=== PATIENT | male | born 1940 | race Caucasian/White ===

== ENCOUNTER 2018-12-10 12:05 | Inpatient (IN) | payer OTHER ==
[~2018-12-10] VITALS: Ht 188 cm; Wt 137.6 kg
[~2018-12-10 12:05] MED LIST: ACET500 PO; ALBU90OI61 INH; AMLO10 PO; Aspir 8181 MG PO; CHLO25B PO; DIGO.25 PO; DIPH50 PO; Daily Multiple1 EACH PO; Glucophage1000 MG PO; LOSA50 PO; MELA3 PO; METF500C PO; METO50 PO; METO50ER PO; NIAC500 PO; OXYACE5T PO; POTA10T PO; POTCHL20ER PO; SERT50 PO; SIMV40 PO; SPIR25 PO; STIOLTO RESPIMAT4 GM INH; Simvastatin20 MG PO; TURMERIC500 MG PO; UBID10 PO; WARF1 PO
[2018-12-10] MEDS ORDERED: ALBU2.5V5 NEB (13:00)
[2018-12-10] MEDS ORDERED: CHLO25B PO (13:01)
[2018-12-10] MEDS ORDERED: COLCHICINE0.6 MG PO (13:02)
[2018-12-10] MEDS ORDERED: DOXY100 PO (13:03)
[2018-12-10] MEDS ORDERED: DOCU100 PO (13:03)
[2018-12-10] MEDS ORDERED: KETOROLAC TROMET5 ML (13:04)
[2018-12-10] MEDS ORDERED: MONT10T PO (13:05)
[2018-12-10] MEDS ORDERED: Percocet 5-3251 EACH PO (13:09)
[2018-12-10] MEDS ORDERED: VITAMIN C500 MG PO (14:07)
[2018-12-10] MEDS ORDERED: BENADRYL25 MG PO (15:44)
[2018-12-10] MEDS ORDERED: MELATONIN5 M1 PO (15:47)
[2018-12-11 04:55] LABS: BASOPHILS ABSOLUTE AUTO 0.06 K/mm3 (0.00-0.23); BASOPHILS PERCENT AUTO 0 % (0-2); EOSINOPHILS ABSOLUTE AUTO 0.39 K/mm3 (0.00-0.68); EOSINOPHILS PERCENT AUTO 2 % (0-6); Hematocrit 43.9 % (37.0-53.0); Hemoglobin 14.6 g/dL (13.5-17.5); IMMATURE GRAN ABSOLUTE AUTO 0.14 K/mm3 (0.00-0.10); IMMATURE GRAN PERCENT AUTO 1 % (0-1); LYMPHOCYTES ABSOLUTE AUTO 1.54 K/mm3 (0.84-5.20); LYMPHOCYTES PERCENT AUTO 9 % (21-46); MONOCYTES ABSOLUTE AUTO 1.74 K/mm3 (0.16-1.47); MONOCYTES PERCENT AUTO 10 % (4-13); Mean Corpuscular HGB 33.9 pg (26.0-34.0); Mean Corpuscular HGB Conc 33.3 g/dL (31.5-36.5); Mean Platelet Volume 12.4 fL (9.1-12.4); NEUTROPHILS ABSOLUTE AUTO 14.16 K/mm3 (1.96-9.15); NEUTROPHILS PERCENT AUTO 79 % (41-73); Platelet Count 100 K/mm3 (150-400); RDW Coefficient Variation 12.3 % (11.7-14.2); RDW Standard Deviation 46.6 fL (35.1-46.3); Red Blood Cell Count 4.31 M/mm3 (4.30-5.90); White Blood Cell Count 18.03 K/mm3 (4.00-11.30)
[2018-12-11 04:56] LABS: Mean Corpuscular Volume 102 fL (80-100)
[2018-12-11 05:11] LABS: International Normalized Ratio 2.47; Prothrombin Time Results 24.1 Sec (9.7-11.5)
[2018-12-11 05:21] LABS: Alanine Aminotransfer (ALT/SGP 19 U/L (12-78); Albumin, Blood 2.9 g/dL (3.4-5.0); Albumin/Globulin Ratio 0.9 (0.8-1.8); Alk Phos 64 U/L (50-136); Anion Gap 6 mmol/L (6-16); Aspartate Aminotrans (AST/SGOT 25 U/L (12-37); Bilirubin, Total 1.1 mg/dL (0.1-1.0); Blood Urea Nitrogen 35 mg/dL (8-24); Bun/Creatinine Ratio 29.9 (12.0-20.0); CO2, Blood 27 mmol/L (21-32); Calcium, Blood 8.1 mg/dL (8.5-10.1); Chloride, Blood 106 mmol/L (98-108); Creatinine, Blood 1.17 mg/dL (0.60-1.20); Globulin, Blood 3.3 g/dL (2.2-4.0); Glomerular Filtration Rate >60 (60-); Glucose, Blood 106 mg/dL (70-99); Potassium, Blood 4.2 mmol/L (3.5-5.5); Sodium, Blood 139 mmol/L (136-145); Total Protein, Blood 6.2 g/dL (6.4-8.2)
[2018-12-12 04:30] LABS: BASOPHILS ABSOLUTE AUTO 0.05 K/mm3 (0.00-0.23); BASOPHILS PERCENT AUTO 0 % (0-2); EOSINOPHILS ABSOLUTE AUTO 0.35 K/mm3 (0.00-0.68); EOSINOPHILS PERCENT AUTO 2 % (0-6); Hematocrit 46.6 % (37.0-53.0); Hemoglobin 15.6 g/dL (13.5-17.5); IMMATURE GRAN ABSOLUTE AUTO 0.12 K/mm3 (0.00-0.10); IMMATURE GRAN PERCENT AUTO 1 % (0-1); LYMPHOCYTES ABSOLUTE AUTO 1.35 K/mm3 (0.84-5.20); LYMPHOCYTES PERCENT AUTO 8 % (21-46); MONOCYTES ABSOLUTE AUTO 2.05 K/mm3 (0.16-1.47); MONOCYTES PERCENT AUTO 12 % (4-13); Mean Corpuscular HGB 33.8 pg (26.0-34.0); Mean Corpuscular HGB Conc 33.5 g/dL (31.5-36.5); Mean Corpuscular Volume 101 fL (80-100); Mean Platelet Volume 11.5 fL (9.1-12.4); NEUTROPHILS ABSOLUTE AUTO 13.13 K/mm3 (1.96-9.15); NEUTROPHILS PERCENT AUTO 77 % (41-73); Platelet Count 106 K/mm3 (150-400); RDW Coefficient Variation 12.4 % (11.7-14.2); RDW Standard Deviation 46.7 fL (35.1-46.3); Red Blood Cell Count 4.62 M/mm3 (4.30-5.90); White Blood Cell Count 17.05 K/mm3 (4.00-11.30)
[2018-12-12 04:44] LABS: International Normalized Ratio 1.67; Prothrombin Time Results 16.9 Sec (9.7-11.5)
[2018-12-12 04:47] LABS: Alanine Aminotransfer (ALT/SGP 24 U/L (12-78); Albumin, Blood 3.1 g/dL (3.4-5.0); Albumin/Globulin Ratio 0.9 (0.8-1.8); Alk Phos 67 U/L (50-136); Anion Gap 4 mmol/L (6-16); Aspartate Aminotrans (AST/SGOT 26 U/L (12-37); Bilirubin, Total 1.5 mg/dL (0.1-1.0); Blood Urea Nitrogen 26 mg/dL (8-24); Bun/Creatinine Ratio 24.8 (12.0-20.0); CO2, Blood 29 mmol/L (21-32); Calcium, Blood 8.6 mg/dL (8.5-10.1); Chloride, Blood 109 mmol/L (98-108); Creatinine, Blood 1.05 mg/dL (0.60-1.20); Globulin, Blood 3.5 g/dL (2.2-4.0); Glomerular Filtration Rate >60 (60-); Glucose, Blood 125 mg/dL (70-99); Potassium, Blood 4.1 mmol/L (3.5-5.5); Sodium, Blood 142 mmol/L (136-145); Total Protein, Blood 6.6 g/dL (6.4-8.2)
[2018-12-12 13:37] LABS: Vancomycin, Trough 10.2 ug/mL (5.0-10.0)
[2018-12-13 04:42] LABS: International Normalized Ratio 1.89; Prothrombin Time Results 18.9 Sec (9.7-11.5)
[2018-12-14 04:51] LABS: BASOPHILS ABSOLUTE AUTO 0.06 K/mm3 (0.00-0.23); BASOPHILS PERCENT AUTO 0 % (0-2); EOSINOPHILS ABSOLUTE AUTO 0.54 K/mm3 (0.00-0.68); EOSINOPHILS PERCENT AUTO 3 % (0-6); Hematocrit 45.6 % (37.0-53.0); Hemoglobin 15.4 g/dL (13.5-17.5); IMMATURE GRAN ABSOLUTE AUTO 0.12 K/mm3 (0.00-0.10); IMMATURE GRAN PERCENT AUTO 1 % (0-1); LYMPHOCYTES ABSOLUTE AUTO 1.77 K/mm3 (0.84-5.20); LYMPHOCYTES PERCENT AUTO 11 % (21-46); MONOCYTES ABSOLUTE AUTO 2.18 K/mm3 (0.16-1.47); MONOCYTES PERCENT AUTO 13 % (4-13); Mean Corpuscular HGB Conc 33.8 g/dL (31.5-36.5); NEUTROPHILS ABSOLUTE AUTO 11.89 K/mm3 (1.96-9.15); NEUTROPHILS PERCENT AUTO 72 % (41-73); Platelet Count 145 K/mm3 (150-400); RDW Coefficient Variation 12.3 % (11.7-14.2); RDW Standard Deviation 44.3 fL (35.1-46.3); Red Blood Cell Count 4.67 M/mm3 (4.30-5.90); White Blood Cell Count 16.56 K/mm3 (4.00-11.30)
[2018-12-14 04:53] LABS: Mean Corpuscular Volume 98 fL (80-100)
[2018-12-14 05:07] LABS: International Normalized Ratio 2.08; Prothrombin Time Results 20.6 Sec (9.7-11.5)
[2018-12-14 05:11] LABS: Alanine Aminotransfer (ALT/SGP 27 U/L (12-78); Albumin, Blood 2.9 g/dL (3.4-5.0); Albumin/Globulin Ratio 0.8 (0.8-1.8); Alk Phos 72 U/L (50-136); Anion Gap 6 mmol/L (6-16); Aspartate Aminotrans (AST/SGOT 18 U/L (12-37); Bilirubin, Total 1.5 mg/dL (0.1-1.0); Blood Urea Nitrogen 22 mg/dL (8-24); Bun/Creatinine Ratio 24.1 (12.0-20.0); CO2, Blood 28 mmol/L (21-32); Calcium, Blood 8.9 mg/dL (8.5-10.1); Chloride, Blood 106 mmol/L (98-108); Creatinine, Blood 0.91 mg/dL (0.60-1.20); Globulin, Blood 3.5 g/dL (2.2-4.0); Glomerular Filtration Rate >60 (60-); Glucose, Blood 128 mg/dL (70-99); Potassium, Blood 4.2 mmol/L (3.5-5.5); Sodium, Blood 140 mmol/L (136-145); Total Protein, Blood 6.4 g/dL (6.4-8.2)
[2018-12-15 05:31] LABS: International Normalized Ratio 2.3; Prothrombin Time Results 22.6 Sec (9.7-11.5)
[2018-12-16 04:57] LABS: BASOPHILS ABSOLUTE AUTO 0.06 K/mm3 (0.00-0.23); BASOPHILS PERCENT AUTO 0 % (0-2); EOSINOPHILS ABSOLUTE AUTO 0.78 K/mm3 (0.00-0.68); EOSINOPHILS PERCENT AUTO 5 % (0-6); Hematocrit 44.8 % (37.0-53.0); Hemoglobin 15.2 g/dL (13.5-17.5); IMMATURE GRAN ABSOLUTE AUTO 0.15 K/mm3 (0.00-0.10); IMMATURE GRAN PERCENT AUTO 1 % (0-1); LYMPHOCYTES ABSOLUTE AUTO 1.89 K/mm3 (0.84-5.20); LYMPHOCYTES PERCENT AUTO 12 % (21-46); MONOCYTES ABSOLUTE AUTO 1.67 K/mm3 (0.16-1.47); MONOCYTES PERCENT AUTO 10 % (4-13); Mean Corpuscular HGB 33.5 pg (26.0-34.0); Mean Corpuscular HGB Conc 33.9 g/dL (31.5-36.5); Mean Corpuscular Volume 99 fL (80-100); Mean Platelet Volume 10.7 fL (9.1-12.4); NEUTROPHILS ABSOLUTE AUTO 11.49 K/mm3 (1.96-9.15); NEUTROPHILS PERCENT AUTO 72 % (41-73); Platelet Count 159 K/mm3 (150-400); RDW Coefficient Variation 12.2 % (11.7-14.2); RDW Standard Deviation 44.6 fL (35.1-46.3); Red Blood Cell Count 4.54 M/mm3 (4.30-5.90); White Blood Cell Count 16.04 K/mm3 (4.00-11.30)
[2018-12-16 05:11] LABS: International Normalized Ratio 2.28; Prothrombin Time Results 22.4 Sec (9.7-11.5)
[2018-12-16 05:21] LABS: Anion Gap 4 mmol/L (6-16); Blood Urea Nitrogen 27 mg/dL (8-24); Bun/Creatinine Ratio 26.7 (12.0-20.0); CO2, Blood 31 mmol/L (21-32); Chloride, Blood 106 mmol/L (98-108); Creatinine, Blood 1.01 mg/dL (0.60-1.20); Glomerular Filtration Rate >60 (60-); Glucose, Blood 123 mg/dL (70-99); Potassium, Blood 4.3 mmol/L (3.5-5.5); Sodium, Blood 141 mmol/L (136-145)
[2018-12-16] MEDS ORDERED: FURO40 PO (16:57)
[2018-12-16] MEDS ORDERED: Norco 5-325 Ta1 EACH PO (16:57)
[2018-12-16] MEDS ORDERED: Florastor250 MG PO (16:58)
[2018-12-16] MEDS ORDERED: MERREM1 GM IV (16:59)
== END 2018-12-16 15:07 | DRG 872 ==
LOC: ER 12:05 → MEDS 13:40 → ER 14:45 → MEDS 15:39 → ENPENDDIS 12-16 11:41 → MEDS 12-16 15:07
PROVIDERS: Internal Medicine; ADMIT Internal Medicine
DX: A41.9 Sepsis, unspecified organism (principal); L03.116 Cellulitis of left lower limb; J96.11 Chronic respiratory failure with hypoxia; E87.2 Acidosis; D89.9 Disorder involving the immune mechanism, unspecified; M06.9 Rheumatoid arthritis, unspecified; M1A.9XX0 Chronic gout, unspecified, without tophus (tophi); I48.2 Chronic atrial fibrillation; Z79.01 Long term (current) use of anticoagulants; J44.9 Chronic obstructive pulmonary disease, unspecified; D69.6 Thrombocytopenia, unspecified; G47.33 Obstructive sleep apnea (adult) (pediatric); Z88.0 Allergy status to penicillin; I12.9 Hypertensive chronic kidney disease with stage 1 through stage 4 chronic kidney disease, or unspecified chronic kidney disease; E11.22 Type 2 diabetes mellitus with diabetic chronic kidney disease; N18.3 Chronic kidney disease, stage 3 (moderate); Z95.0 Presence of cardiac pacemaker; E78.5 Hyperlipidemia, unspecified; Z99.81 Dependence on supplemental oxygen
CPT/HCPCS: 36415; 71045; 73590; 73701; 80048; 80053; 80061; 80202; 82565; 82947; 83036; 83605; 84550; 85025; 85610; 85651; 86140; 87040; 87081; 93971; 94640; 94760; 94762; 96365; 97110; 97116; 97162; 97166; 97530; 97535; 99284-25; A9270; J2185; J3370; J7030; J7050; Q0163; Q9967

== ENCOUNTER 2019-06-11 08:37 | Inpatient (IN) | payer OTHER ==
[~2019-06-11] VITALS: Ht 188 cm; Wt 139.7 kg
[~2019-06-11 08:37] MED LIST changes: +ALBU2.5V5 NEB; +BENADRYL25 MG PO; +COLCHICINE0.6 MG PO; +DOCU100 PO; +DOXY100 PO; +FURO40 PO; +Florastor250 MG PO; +KETOROLAC TROMET5 ML; +MERREM1 GM IV; +MONT10T PO; +Norco 5-325 Ta1 EACH PO; +Percocet 5-3251 EACH PO; +VITAMIN C500 MG PO
[2019-06-11 09:25] LABS: BASOPHILS ABSOLUTE AUTO 0.07 K/mm3 (0.00-0.23); BASOPHILS PERCENT AUTO 0 % (0-2); EOSINOPHILS ABSOLUTE AUTO 0.31 K/mm3 (0.00-0.68); EOSINOPHILS PERCENT AUTO 1 % (0-6); Hematocrit 52.5 % (37.0-53.0); Hemoglobin 17.6 g/dL (13.5-17.5); IMMATURE GRAN ABSOLUTE AUTO 0.14 K/mm3 (0.00-0.10); IMMATURE GRAN PERCENT AUTO 1 % (0-1); LYMPHOCYTES ABSOLUTE AUTO 1.51 K/mm3 (0.84-5.20); LYMPHOCYTES PERCENT AUTO 6 % (21-46); MONOCYTES ABSOLUTE AUTO 2.27 K/mm3 (0.16-1.47); MONOCYTES PERCENT AUTO 10 % (4-13); Mean Corpuscular HGB 33.3 pg (26.0-34.0); Mean Corpuscular HGB Conc 33.5 g/dL (31.5-36.5); Mean Corpuscular Volume 99 fL (80-100); Mean Platelet Volume 11.6 fL (9.1-12.4); NEUTROPHILS ABSOLUTE AUTO 19.35 K/mm3 (1.96-9.15); NEUTROPHILS PERCENT AUTO 82 % (41-73); Platelet Count 114 K/mm3 (150-400); RDW Coefficient Variation 12.6 % (11.7-14.2); RDW Standard Deviation 46.7 fL (35.1-46.3); Red Blood Cell Count 5.28 M/mm3 (4.30-5.90); White Blood Cell Count 23.65 K/mm3 (4.00-11.30)
[2019-06-11 09:27] LABS: Source, Urine Clean Catch
[2019-06-11 09:30] LABS: Appearance, Urine Clear (Clear); Bilirubin, Urine Neg (Neg); Blood, Urine 5+ (Neg); Color, Urine Yellow (P-Yellow); Glucose Qualitative, Urine Neg (Neg); Ketones, Urine Neg (Neg); Leukocyte Esterase, Urine 1+ (Neg); Nitrite, Urine Pos (Neg); Protein, Urine 1+ (Neg); Urobilinogen, Urine 1+ (Normal)
[2019-06-11 09:36] LABS: Alanine Aminotransfer (ALT/SGP 30 U/L (12-78); Albumin, Blood 3.6 g/dL (3.4-5.0); Alk Phos 54 U/L (50-136); Anion Gap 6 mmol/L (6-16); Aspartate Aminotrans (AST/SGOT 24 U/L (12-37); Bilirubin, Total 1.9 mg/dL (0.1-1.0); Blood Urea Nitrogen 27 mg/dL (8-24); CO2, Blood 26 mmol/L (21-32); Calcium, Blood 8.8 mg/dL (8.5-10.1); Chloride, Blood 108 mmol/L (98-108); Creatinine, Blood 1.23 mg/dL (0.60-1.20); Globulin, Blood 3.7 g/dL (2.2-4.0); Glomerular Filtration Rate >60 (60-); Glucose, Blood 147 mg/dL (70-99); Potassium, Blood 4.2 mmol/L (3.5-5.5); Sodium, Blood 140 mmol/L (136-145); Total Protein, Blood 7.3 g/dL (6.4-8.2)
[2019-06-11 09:46] LABS: Bacteria Rare /hpf; Red Blood Cells, Urine 50-100 /hpf (0-2); Squamous Epithelial Cells Not Seen /hpf (Few)
[2019-06-11] MEDS ORDERED: CHLO25B PO (11:43)
[2019-06-11 12:39] LABS: International Normalized Ratio 2.1; Prothrombin Time Results 20.8 Sec (9.7-11.5)
--- NOTE | 2019-06-11 18:50 | NUR ---
SHIFT SUMMARY PT IS A&O X4. 1 ASSIST WITH TRANSFERS. PT IS ON 3L O2 VIA NC WHICH IS PT'S BASELINE PER PT DUE TO HX COPD. PT HAS STATED HIS PAIN HAS BEEN TOLERABLE AT 2-3 OUT OF 10. IV FLUIDS & ABX INFUSED PER EMAR. PT HAS BEEN SEEN BY DR. MURRELL AND STARTED ON A CLEAR LIQUID DIET OF NOW. NO OTHER CHANGES. CALL LIGHT IN REACH
[2019-06-12 04:34] LABS: BASOPHILS ABSOLUTE AUTO 0.05 K/mm3 (0.00-0.23); BASOPHILS PERCENT AUTO 0 % (0-2); EOSINOPHILS ABSOLUTE AUTO 0.29 K/mm3 (0.00-0.68); EOSINOPHILS PERCENT AUTO 2 % (0-6); Hematocrit 47.6 % (37.0-53.0); Hemoglobin 15.9 g/dL (13.5-17.5); IMMATURE GRAN ABSOLUTE AUTO 0.09 K/mm3 (0.00-0.10); IMMATURE GRAN PERCENT AUTO 1 % (0-1); LYMPHOCYTES ABSOLUTE AUTO 1.54 K/mm3 (0.84-5.20); LYMPHOCYTES PERCENT AUTO 8 % (21-46); MONOCYTES ABSOLUTE AUTO 1.09 K/mm3 (0.16-1.47); MONOCYTES PERCENT AUTO 6 % (4-13); Mean Corpuscular HGB 33.3 pg (26.0-34.0); Mean Corpuscular HGB Conc 33.4 g/dL (31.5-36.5); Mean Corpuscular Volume 100 fL (80-100); Mean Platelet Volume 11.9 fL (9.1-12.4); NEUTROPHILS ABSOLUTE AUTO 16.49 K/mm3 (1.96-9.15); NEUTROPHILS PERCENT AUTO 84 % (41-73); Platelet Count 98 K/mm3 (150-400); RDW Coefficient Variation 12.9 % (11.7-14.2); Red Blood Cell Count 4.78 M/mm3 (4.30-5.90); White Blood Cell Count 19.55 K/mm3 (4.00-11.30)
[2019-06-12 04:45] LABS: International Normalized Ratio 1.99; Prothrombin Time Results 19.8 Sec (9.7-11.5)
[2019-06-12 04:52] LABS: Alanine Aminotransfer (ALT/SGP 21 U/L (12-78); Albumin, Blood 3.2 g/dL (3.4-5.0); Alk Phos 47 U/L (50-136); Anion Gap 6 mmol/L (6-16); Aspartate Aminotrans (AST/SGOT 19 U/L (12-37); Bilirubin, Total 2.4 mg/dL (0.1-1.0); Blood Urea Nitrogen 20 mg/dL (8-24); Bun/Creatinine Ratio 19.2 (12.0-20.0); CO2, Blood 29 mmol/L (21-32); Chloride, Blood 109 mmol/L (98-108); Creatinine, Blood 1.04 mg/dL (0.60-1.20); Globulin, Blood 3.2 g/dL (2.2-4.0); Glomerular Filtration Rate >60 (60-); Glucose, Blood 118 mg/dL (70-99); Potassium, Blood 4.2 mmol/L (3.5-5.5); Sodium, Blood 144 mmol/L (136-145); Total Protein, Blood 6.4 g/dL (6.4-8.2)
--- NOTE | 2019-06-12 05:04 | NUR ---
SHIFT SUMMARY: PT APPEARS COMFORTABLE THROUGHOUT NIGHT. A7O X4. VS WNL. DENIES PAIN AND NAUSEA. FLUIDS AND ABX INFUSING PER EMAR. WBC'S REMAIN ELEVATED THIS MORNING AT 19.5. PT KATTY CLR LIQ DIET. CBG'S STABLE WITHOUT NEED FOR COVERAGE. PT WITH SMALL AMT OF URINE OUTPUT. URINE DARK/REYES COLORED. USING HOME CPAP T/O NIGHT WITH 6-7L O2. O2 SATS SITTING AT 92%. PT DENIES SOB.
--- NOTE | 2019-06-12 16:34 | NUR ---
SUMMARY: PT ADMITTED FOR DIVERTICULITIS. NO ACUTE CHANGE TODAY. PT HAD LIQUID BM THIS AM. DENIES PAIN/NAUSEA. TOLERATING FULL LIQUID DIET. PT DENIES SOB, ON 4L O2 WHICH IS PT BASELINE, VSS. NO SAFETY CONCERNS. PLAN IS FOR REPEAT LABS IN AM. WILL CTM AND REPORT TO LIVIER MARINELLI.
[2019-06-13 04:47] LABS: BASOPHILS ABSOLUTE AUTO 0.04 K/mm3 (0.00-0.23); BASOPHILS PERCENT AUTO 0 % (0-2); EOSINOPHILS ABSOLUTE AUTO 0.59 K/mm3 (0.00-0.68); EOSINOPHILS PERCENT AUTO 5 % (0-6); Hematocrit 47.4 % (37.0-53.0); Hemoglobin 15.5 g/dL (13.5-17.5); IMMATURE GRAN ABSOLUTE AUTO 0.04 K/mm3 (0.00-0.10); IMMATURE GRAN PERCENT AUTO 0 % (0-1); LYMPHOCYTES PERCENT AUTO 13 % (21-46); MONOCYTES ABSOLUTE AUTO 1.13 K/mm3 (0.16-1.47); MONOCYTES PERCENT AUTO 10 % (4-13); Mean Corpuscular HGB 33.3 pg (26.0-34.0); Mean Corpuscular HGB Conc 32.7 g/dL (31.5-36.5); Mean Corpuscular Volume 102 fL (80-100); NEUTROPHILS ABSOLUTE AUTO 7.88 K/mm3 (1.96-9.15); NEUTROPHILS PERCENT AUTO 71 % (41-73); Platelet Count 101 K/mm3 (150-400); RDW Standard Deviation 48.4 fL (35.1-46.3); Red Blood Cell Count 4.66 M/mm3 (4.30-5.90); White Blood Cell Count 11.08 K/mm3 (4.00-11.30)
--- NOTE | 2019-06-13 05:28 | NUR ---
SHIFT SUMMARY LYING ON RIGHT SIDE WITH EYES CLOSED. 1 PERSON ASSIST WITH AMBULATION TO BATHROOM. STATES THAT HE IS LOOKING FORWARD TO GOING HOME TODAY. DENIES FURTHER NEEDS AT THIS TIME. SAFETY MEASURES IN PLACE. WILL GIVE HANF OFF TO ONCOMING SHIFT USING SBAR.
[2019-06-13] MEDS ORDERED: CIPR750 PO (07:34)
[2019-06-13] MEDS ORDERED: METR500 PO (07:37)
--- NOTE | 2019-06-13 11:19 | NUR ---
DISCHARGE: PACKET PRINTED AND PT EDUCATED. MEDS CALLED TO PHARMACY. [facility] WITH [facility]UDIE [facility] AT ABOUT 1110.
== END 2019-06-13 11:11 | disposition home or self-care (01) | DRG 392 ==
LOC: ER 08:37 → SURS 11:03
PROVIDERS: Emergency Medicine; Student in an Organized Health Care Education/Training Program; ADMIT Internal Medicine
DX: K57.20 Diverticulitis of large intestine with perforation and abscess without bleeding (principal); I48.20 Chronic atrial fibrillation, unspecified; J96.11 Chronic respiratory failure with hypoxia; J44.9 Chronic obstructive pulmonary disease, unspecified; M06.9 Rheumatoid arthritis, unspecified; I12.9 Hypertensive chronic kidney disease with stage 1 through stage 4 chronic kidney disease, or unspecified chronic kidney disease; E11.22 Type 2 diabetes mellitus with diabetic chronic kidney disease; N18.3 Chronic kidney disease, stage 3 (moderate); G47.33 Obstructive sleep apnea (adult) (pediatric); D69.6 Thrombocytopenia, unspecified; M10.9 Gout, unspecified; Z99.81 Dependence on supplemental oxygen; Z88.0 Allergy status to penicillin; Z79.01 Long term (current) use of anticoagulants; Z79.899 Other long term (current) drug therapy; Z87.891 Personal history of nicotine dependence; Z95.0 Presence of cardiac pacemaker
CPT/HCPCS: 36415; 74177; 80053; 81001; 82947; 83690; 85025; 85610; 87077; 87086; 87186; 94762; 96361; 96365-59; 96367; 99285-25; J0696; J1644; J7030; Q9967

== ENCOUNTER 2020-05-01 11:59 | Inpatient (IN) | payer OTHER ==
[~2020-05-01] VITALS: Ht 188 cm; Wt 136.7 kg
[~2020-05-01 11:59] MED LIST changes: -AMLO10 PO; +CIPR750 PO; -Daily Multiple1 EACH PO; -LOSA50 PO; -METO50 PO; +METR500 PO; -MONT10T PO; -SPIR25 PO; -Simvastatin20 MG PO; -VITAMIN C500 MG PO; -WARF1 PO
[2020-05-01 12:23] LABS: Base Excess Venous 4.9 mmol/L; Bicarbonate Venous 25.7 mmol/L (24.0-30.0); PCO2 Venous 50.8 mmHg (38-42); PO2 Venous 31.6 mmHg (38-42); pH Blood Venous 7.38 (7.34-7.37)
[2020-05-01 12:49] LABS: BASOPHILS ABSOLUTE AUTO 0.05 K/mm3 (0.00-0.23); BASOPHILS PERCENT AUTO 1 % (0-2); EOSINOPHILS PERCENT AUTO 5 % (0-6); IMMATURE GRAN ABSOLUTE AUTO 0.03 K/mm3 (0.00-0.10); IMMATURE GRAN PERCENT AUTO 0 % (0-1); LYMPHOCYTES ABSOLUTE AUTO 1.92 K/mm3 (0.84-5.20); LYMPHOCYTES PERCENT AUTO 26 % (21-46); MONOCYTES ABSOLUTE AUTO 1.07 K/mm3 (0.16-1.47); MONOCYTES PERCENT AUTO 15 % (4-13); Mean Corpuscular HGB 34.8 pg (26.0-34.0); Mean Corpuscular HGB Conc 33.6 g/dL (31.5-36.5); Mean Corpuscular Volume 104 fL (80-100); Mean Platelet Volume 11.9 fL (9.1-12.4); NEUTROPHILS ABSOLUTE AUTO 3.93 K/mm3 (1.96-9.15); NEUTROPHILS PERCENT AUTO 53 % (41-73); Platelet Count 108 K/mm3 (150-400); RDW Coefficient Variation 13.7 % (11.7-14.2); RDW Standard Deviation 52.7 fL (35.1-46.3); Red Blood Cell Count 5.46 M/mm3 (4.30-5.90)
[2020-05-01 12:51] LABS: Hematocrit 56.6 % (37.0-53.0)
[2020-05-01 13:10] LABS: Alanine Aminotransfer (ALT/SGP 36 U/L (12-78); Albumin, Blood 3.7 g/dL (3.4-5.0); Albumin/Globulin Ratio 1.1 (0.8-1.8); Alk Phos 49 U/L (50-136); Anion Gap 5 mmol/L (6-16); Aspartate Aminotrans (AST/SGOT 34 U/L (12-37); Blood Urea Nitrogen 28 mg/dL (8-24); Bun/Creatinine Ratio 18.5 (12.0-20.0); CO2, Blood 28 mmol/L (21-32); Calcium, Blood 8.9 mg/dL (8.5-10.1); Chloride, Blood 108 mmol/L (98-108); Creatinine, Blood 1.51 mg/dL (0.60-1.20); Globulin, Blood 3.5 g/dL (2.2-4.0); Glomerular Filtration Rate 48 (60-); Glucose, Blood 125 mg/dL (70-99); Potassium, Blood 4.9 mmol/L (3.5-5.5); Sodium, Blood 141 mmol/L (136-145); Total Protein, Blood 7.2 g/dL (6.4-8.2); Troponin I 0.035 ng/mL (0.000-0.040)
[2020-05-01] MEDS ORDERED: BROVANA15 MCG/21 NEB (13:10)
[2020-05-01] MEDS ORDERED: AMLO10 PO (13:12)
[2020-05-01] MEDS ORDERED: MONT10T PO (13:12)
[2020-05-01] MEDS ORDERED: WARF1 PO (13:12)
[2020-05-01] MEDS ORDERED: ALBU2.5V5 NEB (13:14)
[2020-05-01] MEDS ORDERED: METO50 PO (13:15)
[2020-05-01] MEDS ORDERED: LOSA50 PO (13:15)
[2020-05-01] MEDS ORDERED: Simvastatin20 MG PO (13:15)
[2020-05-01] MEDS ORDERED: CHLO25B PO (13:16)
[2020-05-01] MEDS ORDERED: VITAMIN C500 MG PO (13:17)
[2020-05-01] MEDS ORDERED: MULTI VITAMIN1 EACH PO (13:17)
[2020-05-01] MEDS ORDERED: MELATONIN5 M1 PO (13:17)
[2020-05-01 13:42] LABS: Adenovirus Not Detected (NOT DETECT); Bordetella pertussis Not Detected (NOT DETECT); Chlamydophila pneumoniae Not Detected (NOT DETECT); Coronavirus 229E Not Detected (NOT DETECT); Coronavirus HKU1 Not Detected (NOT DETECT); Coronavirus NL63 Not Detected (NOT DETECT); Coronavirus OC43 Not Detected (NOT DETECT); Human Metapneumovirus Not Detected (NOT DETECT); Human Rhinovirus/Enterovirus Not Detected (NOT DETECT); Influenza A/2009-H1 Not Detected (NOT DETECT); Influenza A/H1 Not Detected (NOT DETECT); Influenza A/H3 Not Detected (NOT DETECT); Influenza B Not Detected (NOT DETECT); Mycoplasma pneumoniae Not Detected (NOT DETECT); Parainfluenza Virus 1 Not Detected (NOT DETECT); Parainfluenza Virus 2 Not Detected (NOT DETECT); Parainfluenza Virus 3 Not Detected (NOT DETECT); Parainfluenza Virus 4 Not Detected (NOT DETECT); Respiratory Syncytial Virus Not Detected (NOT DETECT); SARS-Cov-2 (COVID-19), BioFire Not Detected (NOT DETECT)
[2020-05-01] MEDS ORDERED: ACTEMRA162 MG/0.1 SC (14:09)
[2020-05-01] MEDS ORDERED: CO Q10100 MG PO (14:12)
[2020-05-01] MEDS ORDERED: BANOPHEN50 MG PO (14:18)
--- NOTE | 2020-05-01 17:02 | NUR ---
PT ARRIVED IN THE UNIT VIA STRETCHER TRANSFER TO BED VIA SLIDE SHEET. PT IS HERE FOR ACUTE ON CHRONIC RESPI FAILURE, PT IS ALERT AND ORIENTED AT BASELINE, LIMITED SPEECH DUE TO SOB/SOB, PT WAS ON 6L OF O2 VIA NASAL CANNULA PT WAS SATTING ON THE LOW 70'S PT WAS BUMPED UP TO 10L AND SATS JUST REMAINED ON THE LOW 80'S, RT WAS CALLED REQUESTED AN ORDER FOR BIPAP. PT WAS PLACED ON BIPAP INITIALLY AT 90% FIO2, PT RECOVERED BACK TO 90-91% SPO2 FIO2 TITRATED DOWN TO 70%. VITALS HRR 100 VPACED ON THE 60'S, BP SYSTOLIC 120'S, AFEBRILE. PT DENIES ANY PAIN. ONE TIME DOSE OF LASIX ORDERED, TO START PT ON PREDNISONE. PT IN BED RESTING AT THIS TIME, PT STATED HE CAN GET UP AND USE BATHROOM FOR TOILETING, PT WAS INSTRUCTED TO USE URINAL AT THIS TIME DUE TO BREATHING ISSUES PT AGREEABLE. PT IN BED RESTING, NO ISSUES OR CONCERNED AT THIS TIME. ABLE TO MAKE NEEDS KNOWN, CALL LIGHTS IN REACH. WILL MONITOR UNTIL END OF SHIFT
[2020-05-01 18:01] LABS: International Normalized Ratio 4.66; Prothrombin Time Results 45.7 Sec (9.7-11.5)
--- NOTE | 2020-05-01 23:12 | NUR ---
PATIENT IS ALERT, ORIENTED AND COOPERATIVE WITH CARE. REPOSITIONS SELF WELL IN BED. WAS ON BIPAP AND IS NOW TOLERATING CPAP WELL FIO2 70% ON 15L , 02 SATS> 90%. COLLECTED URINE SAMPLE, PATIENT USES URINAL INDEPENDENTLY. PATIENT USED BEDPAN AND WAS TALKED TO ABOUT STAYING IN BED DUE TO HIS OXYGEN REQUIREMENTS AT THE MOMENT. VSS, NO ACUTE CHANGES. CALL LIGHT IN REACH, WILL CONTINUE TO MONITOR.
[2020-05-02 04:20] LABS: BASOPHILS ABSOLUTE AUTO 0.01 K/mm3 (0.00-0.23); BASOPHILS PERCENT AUTO 0 % (0-2); EOSINOPHILS PERCENT AUTO 0 % (0-6); Hematocrit 53.1 % (37.0-53.0); Hemoglobin 17.9 g/dL (13.5-17.5); IMMATURE GRAN ABSOLUTE AUTO 0.05 K/mm3 (0.00-0.10); IMMATURE GRAN PERCENT AUTO 1 % (0-1); LYMPHOCYTES ABSOLUTE AUTO 0.74 K/mm3 (0.84-5.20); LYMPHOCYTES PERCENT AUTO 10 % (21-46); MONOCYTES ABSOLUTE AUTO 0.13 K/mm3 (0.16-1.47); MONOCYTES PERCENT AUTO 2 % (4-13); Mean Corpuscular HGB 35.2 pg (26.0-34.0); Mean Corpuscular HGB Conc 33.7 g/dL (31.5-36.5); Mean Corpuscular Volume 105 fL (80-100); Mean Platelet Volume 12.2 fL (9.1-12.4); NEUTROPHILS ABSOLUTE AUTO 6.49 K/mm3 (1.96-9.15); NEUTROPHILS PERCENT AUTO 87 % (41-73); Platelet Count 105 K/mm3 (150-400); RDW Coefficient Variation 13.6 % (11.7-14.2); RDW Standard Deviation 51.9 fL (35.1-46.3); Red Blood Cell Count 5.08 M/mm3 (4.30-5.90); White Blood Cell Count 7.42 K/mm3 (4.00-11.30)
[2020-05-02 04:38] LABS: Bun/Creatinine Ratio 20.9 (12.0-20.0); Calcium, Blood 8.6 mg/dL (8.5-10.1); Creatinine, Blood 1.72 mg/dL (0.60-1.20); Potassium, Blood 4.6 mmol/L (3.5-5.5)
[2020-05-02 04:55] LABS: International Normalized Ratio 4.15
--- NOTE | 2020-05-02 06:01 | NUR ---
SUMMARY PATIENT SLEPT MOST THE NIGHT. 02 REMAINS IN UPPER 80s TO LOWER 90s IN CPAP WITH FI02 70% ON 15L. PATIENT IS COOPERATIVE WITH CARE. VSS, NO ACUTE CHANGES. CALL LIGHT IN REACH. WILL CONTIUE TO MONITOR.
--- NOTE | 2020-05-02 18:21 | NUR ---
SHIFT NOTE PT HAS BEEN ON CPAP CONTINUOUSLY T/O THE DAY, PT DESATURATES EASILY ON NC TO EAT HIS MEALS. PT'S S/S WAS CHANGED TO MEDIUM PT DID REFUSE HIS AFTERNOON DOSE OF INSULIN HE DOES NOT TAKE INSULIN AT HOME AND WANTED TO REASSESS SUGAR TONIGHT. PT HAS BEEN UP TO BEDSIDE CHAIR TODAY WHICH WAS TOLERATED WELL. PT DID HAVE ONE BM DURING HTIS SHIFT WHICH WAS SOFT. PT WISHES TO GO HOME BUT REMAINS DEPENDANT ON CPAP
[2020-05-03 04:24] LABS: International Normalized Ratio 3.76; Prothrombin Time Results 37.3 Sec (9.7-11.5)
--- NOTE | 2020-05-03 04:26 | NUR ---
SUMMARY PATIENT IS ALERT, ORIENTED AND COOPERATIVE WITH CARE. SLEPT MOST THE NIGHT. WORE CPAP ALL SHIFT FIO2 AT 50% ON 11L WITH 02 SATS 88-90%. HELPED PATIENT WITH URINAL. PATIENT INDEPENDENT WITH REPOSITIONING IN BED. VSS, NO ACUTE CHANGES. CALL LIGHT IN REACH. WILL CONTINUE TO MONITOR.
[2020-05-03 12:12] LABS: BASOPHILS ABSOLUTE AUTO 0.01 K/mm3 (0.00-0.23); BASOPHILS PERCENT AUTO 0 % (0-2); EOSINOPHILS ABSOLUTE AUTO 0.01 K/mm3 (0.00-0.68); EOSINOPHILS PERCENT AUTO 0 % (0-6); Hematocrit 52.2 % (37.0-53.0); Hemoglobin 17.4 g/dL (13.5-17.5); IMMATURE GRAN ABSOLUTE AUTO 0.09 K/mm3 (0.00-0.10); IMMATURE GRAN PERCENT AUTO 1 % (0-1); LYMPHOCYTES PERCENT AUTO 8 % (21-46); MONOCYTES PERCENT AUTO 11 % (4-13); Mean Corpuscular HGB Conc 33.3 g/dL (31.5-36.5); Mean Corpuscular Volume 105 fL (80-100); Mean Platelet Volume 11.7 fL (9.1-12.4); NEUTROPHILS PERCENT AUTO 81 % (41-73); Platelet Count 108 K/mm3 (150-400); RDW Coefficient Variation 14.2 % (11.7-14.2); RDW Standard Deviation 54.2 fL (35.1-46.3); Red Blood Cell Count 4.97 M/mm3 (4.30-5.90); White Blood Cell Count 13.31 K/mm3 (4.00-11.30)
[2020-05-03 12:25] LABS: Albumin, Blood 3.7 g/dL (3.4-5.0); Albumin/Globulin Ratio 1.2 (0.8-1.8); Bilirubin, Total 1.7 mg/dL (0.1-1.0); Bun/Creatinine Ratio 34.2 (12.0-20.0); Calcium, Blood 8.8 mg/dL (8.5-10.1); Creatinine, Blood 1.55 mg/dL (0.60-1.20); Globulin, Blood 3.2 g/dL (2.2-4.0); Potassium, Blood 4.8 mmol/L (3.5-5.5); Total Protein, Blood 6.9 g/dL (6.4-8.2)
--- NOTE | 2020-05-03 16:11 | NUR ---
SHIFT NOTE PT HAS BEEN RESTING WELL IN BED AND UP TO BEDSIDE CHAIR T/O THE DAY. PT HAS BEEN BETWEEN 11L 02 N/C AND CPAP T/O THE DAY. DR BECKMAN HAS BEEN IN TO SEE PT TODAY, NO NEW ORDERS RECIEVED FROM HER. PT IS A/O X4, LAUGHING AND JOKING WITH STAFF. VSS. HAS WORKED WITH PT AND OT. WILL CONTINUE TO OBSERVE PT FOR CAHNGES.
[2020-05-04 05:38] LABS: International Normalized Ratio 2.57; Prothrombin Time Results 26.1 Sec (9.7-11.5)
--- NOTE | 2020-05-04 07:37 | NUR ---
SHIFT SUMMARY PATIENT PLEASENT AND COOPERATIVE THROUGHOUT THE NIGHT.PATIENT UP IN RECLINER AT THE BEGINNING OF THE SHIFT BEFORE MOVING TO THE BED TO SLEEP. PATIENT APPEARED TO SLEEP WELL THROUGHOUT THE NIGHT. PATIENT SBA FROM THE BED TO THE CHAIR/BSC. PATIENT USED THE BIPAP ON CPAP SETTINGS WHILE ASLEEP. PATIENT ON 11L VIA HIGH FLOW WHEN OFF BIPAP. PATIENT CURRENTLY SITTING UP IN RECLINER FOR THE MORNING. PATIENT VERY CHEERFUL THIS MORNING. VITAL SIGNS CHARTED. REPORT GIVEN TO ONCOMING RN.
--- NOTE | 2020-05-04 18:55 | NUR ---
SHIFT NOTE PT HAS BEEN RESTING WELL IN BEDSIDE RECLINER, ON 11L NC. PT A.O X4. NO ACUTE CHANGES FOR THIS SHIFT. REPORTS THAT WORK OF BREATHING IS IMPROVING. TALKING IN FULL SENTENCES. LAUGHING AND JOKING WITH STAFF
[2020-05-05 04:25] LABS: BASOPHILS ABSOLUTE AUTO 0.03 K/mm3 (0.00-0.23); BASOPHILS PERCENT AUTO 0 % (0-2); EOSINOPHILS ABSOLUTE AUTO 0.03 K/mm3 (0.00-0.68); EOSINOPHILS PERCENT AUTO 0 % (0-6); Hematocrit 51.8 % (37.0-53.0); Hemoglobin 17.3 g/dL (13.5-17.5); IMMATURE GRAN ABSOLUTE AUTO 0.05 K/mm3 (0.00-0.10); IMMATURE GRAN PERCENT AUTO 1 % (0-1); LYMPHOCYTES PERCENT AUTO 11 % (21-46); MONOCYTES ABSOLUTE AUTO 1.42 K/mm3 (0.16-1.47); MONOCYTES PERCENT AUTO 14 % (4-13); Mean Corpuscular HGB 34.9 pg (26.0-34.0); Mean Corpuscular HGB Conc 33.4 g/dL (31.5-36.5); Mean Corpuscular Volume 105 fL (80-100); Mean Platelet Volume 12.3 fL (9.1-12.4); NEUTROPHILS ABSOLUTE AUTO 7.82 K/mm3 (1.96-9.15); NEUTROPHILS PERCENT AUTO 75 % (41-73); Platelet Count 95 K/mm3 (150-400); RDW Coefficient Variation 13.6 % (11.7-14.2); RDW Standard Deviation 51.7 fL (35.1-46.3); Red Blood Cell Count 4.95 M/mm3 (4.30-5.90); White Blood Cell Count 10.45 K/mm3 (4.00-11.30)
[2020-05-05 04:37] LABS: International Normalized Ratio 1.9; Prothrombin Time Results 19.6 Sec (9.7-11.5)
[2020-05-05 04:44] LABS: Albumin, Blood 3.4 g/dL (3.4-5.0); Albumin/Globulin Ratio 1.3 (0.8-1.8); Bilirubin, Total 1.8 mg/dL (0.1-1.0); Bun/Creatinine Ratio 37.1 (12.0-20.0); Calcium, Blood 9.1 mg/dL (8.5-10.1); Creatinine, Blood 1.43 mg/dL (0.60-1.20); Globulin, Blood 2.7 g/dL (2.2-4.0); Potassium, Blood 4.4 mmol/L (3.5-5.5); Total Protein, Blood 6.1 g/dL (6.4-8.2)
--- NOTE | 2020-05-05 06:46 | NUR ---
SHIFT SUMMARY PATIENT PLEASENT AND COOPERATIVE THROUGHOUT THE NIGHT. PATIENT UP IN RECLINER AT THE BEGINNING OF SHIFT AND THEN MOVED TO THE BED TO SLEEP. PATIENT APPEARED TO SLEEP WELL FOR SEVERAL HOURS. PATIENT IS CURRENTLY SITTING UP IN THE RECLINER IN THE ROOM AGAIN THIS AM WATCHING TV. VERY CHEERFUL THIS MORNING. PATIENT USED HIS CPAP WHILE ASLEEP LAST NIGHT AND IS ON 11L VIA HIGH FLOW WHILE AWAKE. CALL LIGHT IN REACH.
--- NOTE | 2020-05-05 07:36 | NUR ---
ASSUMED CARE: PT SITTING IN RECLINER AT THIS TIME. RECIEVING BREATHING TX. RT REDUCED O2 TO 9L FOR SATS. NO ACUTE NEEDS OR CONCERNS AT THIS TIME.
--- NOTE | 2020-05-05 13:04 | NUR ---
DR LOUIE REQUESTED EXERCISE TRIAL. PT AMBULATED 40 FEET WITH 6L OXYGEN VIA NC. PT BECAME SOB AFTER 20 FEET AND TURNED AROUND AND WENT BACK TO ROOM. DROPPED LOW 84% WITH AMBULATION. WENT INTO ROOM AND SAT IN CHAIR AND DROPPED TO 77% BEFORE BEGINNING TO RECOVER. TOOK SEVERAL MINUTES BEFORE PT RETURNED TO LOW 90S ON BIOX ON 5L. PT STATES HE WOULD PREFER TO WAIT UNTIL TOMORROW AT LEAST BEFORE DC.
--- NOTE | 2020-05-05 16:09 | NUR ---
REPORT GIVEN TO YVES MIDDLETON. RN AWARE OF PT'S RANGE IN O2 FROM 5-7L AND ACCEPTABLE RANGE 88 OR ABOVE. ALSO AWARE THAT PT'S STATED HIS HOME CONCENTRATOR ONLY REACHES 5L. DISCUSSED PT'S EXERCISE SATS WITH RN. NO FURTHER NEEDS OR CONCERNS. TRANSFERRED TO MEDICAL FLOOR VIA WHEEL CHAIR BY AUDIE
--- NOTE | 2020-05-05 18:22 | NUR ---
REPORT RECIEVED FROM YVES BENAVIDES PCU @[id number]
--- NOTE | 2020-05-06 04:36 | NUR ---
SCENARIO WRITER SUMMARY PT A&OX4, ABLE TO MAKE NEEDS KNOWN. PLEASANT AND COOPERATIVE TO CARE. NO C/O PAIN OR ANY DISCOMFORT THIS SHIFT. PT ON 6LPM O2 VIA NC SATS >90% THIS SHIFT. WORE CPAP AT NIGHT. DENIES CP, N/V. SOB WITH EXERTION NOTED. LS DIM. ON CONT BIOX. CALM AND RESTED IN BED T/O SHIFT. BED AT LOWEST POSITION. CALL LIGHT WITHIN REACH.
[2020-05-06 06:08] LABS: International Normalized Ratio 1.84
[2020-05-06] MEDS ORDERED: FUROSEMIDE40 MG PO (10:27)
[2020-05-06] MEDS ORDERED: ALDACTONE25 MG PO (10:28)
--- NOTE | 2020-05-06 16:42 | NUR ---
echocardiogram complete
--- NOTE | 2020-05-06 16:52 | NUR ---
PT IS A/OX3, PLEASANT AND COOPERATIVE, THE PT IS UP WITH MINIMAL ASSIST TO THE BSC, THE PT HAS INCREASED SOB WITH ACTIVITY, PT AT REST AT THIS TIME IS CURRENTLY TITRATED DOWN FROM 6L/MIN TO 4L/MIN O2 VIA NC, O2 SATS RANGING 87-92%, DROPS LOWER WITH ACTIVITY, PT DENIED ANY PAIN T/O THE DAY, PT WAS PLACED ON A 2000 CC FLUID RESTRICTION, CALL LIGHT IN REACH, PTS VISITED TODAY
--- NOTE | 2020-05-06 18:00 | NUR ---
Spiritual care intial note: Met with Mr. Guerra and his at bedside. Both report a strong lanie. They have one dtr who is very supportive. They are hopeful for recovery, and Charlie admits he needs to make some lifestyle changes. Pt smiles easily and we established a good rapport. Prayer and encouragement well recieved. I will remain available.
--- NOTE | 2020-05-07 04:04 | NUR ---
ASSOCIATE SCIENTIST SUMMARY PT A&OX4, ABLE TO MAKE NEEDS KNOWN. PLEASANT AND COOPERATIVE TO CARE. NO C/O PAIN OR ANY DISCOMFORT THIS SHIFT. CONT ON 4L O2 VIA NC, SATS AT 87-93%. O2 SATS DROP WITH ACTIVITY. NO SOB NOTED AT REST. PT USED CPAP AT NIGHT. PT UP TO BSC WITH MINIMAL ASSIST. NO C/O CP OR N/V. CALM AND RESTED IN BED T/O SHIFT. BED AT LOWEST POSITION, CALL LIGHT WITHIN REACH. PT ON 2L FLUID RESTRICTION.
[2020-05-07 05:51] LABS: International Normalized Ratio 2.26; Prothrombin Time Results 23.1 Sec (9.7-11.5)
[2020-05-07 13:04] LABS: Bun/Creatinine Ratio 39.9 (12.0-20.0); Calcium, Blood 9.3 mg/dL (8.5-10.1); Creatinine, Blood 1.48 mg/dL (0.60-1.20); Potassium, Blood 4.2 mmol/L (3.5-5.5)
--- NOTE | 2020-05-07 17:54 | NUR ---
PT ALERT AND ORIENTED X4 AND AMBULATES WITHOUT ASSIST. PT L/AC LINE DC'D AND SITE WNL. PT ATE ALL MEALS AND IS WAITING DC INTRUCTIONS NOW. STAFF WILL CONT. TO MONITOR.
--- NOTE | 2020-05-07 18:40 | NUR ---
PT DISCHARGED AND REFEREALS TO HOME HEALTH MADE. PT ENCOURAGED TO FU WITH [facility] FOR NEW MEDICATIONS. PT EDUCATION GIVEN AND ASSISTED WITH ALENA JOHNS DC.
== END 2020-05-07 18:31 | disposition home health service (06) | DRG 291 ==
LOC: ER 11:59 → PCU 13:45 → MEDS 13:45 → PCU 15:02 → MEDS 05-05 16:06
PROVIDERS: Emergency Medicine; Internal Medicine; ADMIT Family Medicine
DX: I13.0 Hypertensive heart and chronic kidney disease with heart failure and stage 1 through stage 4 chronic kidney disease, or unspecified chronic kidney disease (principal); I50.33 Acute on chronic diastolic (congestive) heart failure; J96.22 Acute and chronic respiratory failure with hypercapnia; J96.21 Acute and chronic respiratory failure with hypoxia; I48.20 Chronic atrial fibrillation, unspecified; J44.1 Chronic obstructive pulmonary disease with (acute) exacerbation; Z68.41 Body mass index [BMI] 40.0-44.9, adult; N18.9 Chronic kidney disease, unspecified; E11.22 Type 2 diabetes mellitus with diabetic chronic kidney disease; E66.01 Morbid (severe) obesity due to excess calories; E78.5 Hyperlipidemia, unspecified; F10.20 Alcohol dependence, uncomplicated; F32.9 Major depressive disorder, single episode, unspecified; G47.33 Obstructive sleep apnea (adult) (pediatric); I27.20 Pulmonary hypertension, unspecified; M06.9 Rheumatoid arthritis, unspecified; Z99.81 Dependence on supplemental oxygen; Z87.891 Personal history of nicotine dependence; Z91.19 Patient's noncompliance with other medical treatment and regimen; Z95.0 Presence of cardiac pacemaker; Z91.14 Patient's other noncompliance with medication regimen
CPT/HCPCS: 0202U; 36415; 71045; 80048; 80053; 82803; 82947; 83880; 84484; 85025; 85610; 87449; 93005; 93010; 93306; 94640; 94644; 94660; 94760; 94762; 96365; 96367; 96375; 97110; 97116; 97162; 97166; 97530; 97535; 99285-25; A9270-GY; J0456; J0696; J1940; J2930; J7050; J7512

== ENCOUNTER → 2020-05-29 | Outpatient (CLI) | payer OTHER ==
[~2020-05-29] MED LIST changes: +ACTEMRA162 MG/0.1 SC; +ALDACTONE25 MG PO; +ALLO100 PO; +AMLO10 PO; +AZIT250 PO; +AZIT500 PO; +BANOPHEN50 MG PO; +BASAGLAR K100 UNIT/6 SC; +BROVANA15 MCG/21 NEB; +CALC.25 PO; +CEFU500T30 PO; +CO Q10100 MG PO; +Cleocin HCl300 MG PO; +Coumadin2 MG; +DIPH25 PO; +FLUTICASONE-SA1 EAC1 INH; +FUROSEMIDE40 MG PO; +IPRAT-ALBUT 0.5-3 ML INH; +LOSA50 PO; +MELATONIN5 M1 PO; +METO50 PO; +MONT10T PO; +MULTI VITAMIN1 EACH PO; +PRED10 PO; +PRED20 PO; +Prednisone10 MG PO; +Q-Tussin100 MG/5 M PO; +SPIRIVA RESPIMAT4 G3 INH; +Simvastatin20 MG PO; +VITAMIN C500 MG PO; +WARF4 PO; +ZOCOR20 MG PO
[2020-05-29 13:56] LABS: Protein, Urine Quantitative 5.1 mg/dL (0.0-11.9)
[2020-05-29 13:59] LABS: Microalbumin, Urine Quant. 12.3 mg/L (0.000-20.000)
== END | disposition home or self-care (01) ==
LOC: LAB 10:40
PROVIDERS: Internal Medicine Nephrology
DX: N18.30 Chronic kidney disease, stage 3 unspecified (principal); D63.1 Anemia in chronic kidney disease; N25.81 Secondary hyperparathyroidism of renal origin; E55.9 Vitamin D deficiency, unspecified; E78.00 Pure hypercholesterolemia, unspecified; R76.9 Abnormal immunological finding in serum, unspecified; R94.5 Abnormal results of liver function studies; R94.6 Abnormal results of thyroid function studies; D51.8 Other vitamin B12 deficiency anemias; D52.8 Other folate deficiency anemias; D50.9 Iron deficiency anemia, unspecified
CPT/HCPCS: 81050; 82043; 82570; 84156

== ENCOUNTER 2020-06-20 09:33 | Inpatient (IN) | payer OTHER ==
[~2020-06-20] VITALS: Ht 190.5 cm; Wt 133.4 kg
[~2020-06-20 09:33] MED LIST changes: -ALDACTONE25 MG PO; -ALLO100 PO; -AMLO10 PO; -AZIT250 PO; -AZIT500 PO; -BASAGLAR K100 UNIT/6 SC; -CALC.25 PO; -CEFU500T30 PO; -Cleocin HCl300 MG PO; -Coumadin2 MG; -DIPH25 PO; -FLUTICASONE-SA1 EAC1 INH; -FUROSEMIDE40 MG PO; -IPRAT-ALBUT 0.5-3 ML INH; -LOSA50 PO; -METO50 PO; -MONT10T PO; -PRED10 PO; -PRED20 PO; -Prednisone10 MG PO; -Q-Tussin100 MG/5 M PO; -SPIRIVA RESPIMAT4 G3 INH; -Simvastatin20 MG PO; -WARF4 PO; -ZOCOR20 MG PO
[2020-06-20] MEDS ORDERED: Coumadin2 MG (09:47)
[2020-06-20 10:07] LABS: BASOPHILS ABSOLUTE AUTO 0.05 K/mm3 (0.00-0.23); BASOPHILS PERCENT AUTO 1 % (0-2); Base Excess Venous 2.3 mmol/L; Bicarbonate Venous 26.1 mmol/L (24.0-30.0); EOSINOPHILS ABSOLUTE AUTO 0.28 K/mm3 (0.00-0.68); EOSINOPHILS PERCENT AUTO 3 % (0-6); Hematocrit 49.7 % (37.0-53.0); Hemoglobin 16.9 g/dL (13.5-17.5); IMMATURE GRAN ABSOLUTE AUTO 0.06 K/mm3 (0.00-0.10); IMMATURE GRAN PERCENT AUTO 1 % (0-1); LYMPHOCYTES ABSOLUTE AUTO 2.05 K/mm3 (0.84-5.20); LYMPHOCYTES PERCENT AUTO 23 % (21-46); MONOCYTES ABSOLUTE AUTO 1.11 K/mm3 (0.16-1.47); MONOCYTES PERCENT AUTO 12 % (4-13); Mean Corpuscular HGB 35.1 pg (26.0-34.0); Mean Corpuscular Volume 103 fL (80-100); Mean Platelet Volume 11.7 fL (9.1-12.4); NEUTROPHILS ABSOLUTE AUTO 5.49 K/mm3 (1.96-9.15); NEUTROPHILS PERCENT AUTO 61 % (41-73); NRBC ABSOLUTE 0.02 K/mm3 (0.00-0.02); NRBC Auto 0.2 /100 WBC (0.0-0.2); PCO2 Venous 42.1 mmHg (38-42); PO2 Venous 98.7 mmHg (38-42); Platelet Count 95 K/mm3 (150-400); RDW Coefficient Variation 13.7 % (11.7-14.2); RDW Standard Deviation 51.7 fL (35.1-46.3); Red Blood Cell Count 4.81 M/mm3 (4.30-5.90); White Blood Cell Count 9.04 K/mm3 (4.00-11.30); pH Blood Venous 7.41 (7.34-7.37)
[2020-06-20 10:19] LABS: International Normalized Ratio 2.22; Prothrombin Time Results 22.7 Sec (9.7-11.5)
[2020-06-20 10:25] LABS: Alanine Aminotransfer (ALT/SGP 29 U/L (12-78); Albumin, Blood 3.5 g/dL (3.4-5.0); Alk Phos 48 U/L (50-136); Anion Gap 5 mmol/L (6-16); Aspartate Aminotrans (AST/SGOT 30 U/L (12-37); Bilirubin, Total 2.5 mg/dL (0.1-1.0); Blood Urea Nitrogen 34 mg/dL (8-24); Bun/Creatinine Ratio 22.8 (12.0-20.0); CO2, Blood 29 mmol/L (21-32); Calcium, Blood 8.6 mg/dL (8.5-10.1); Chloride, Blood 107 mmol/L (98-108); Creatinine, Blood 1.49 mg/dL (0.60-1.20); Globulin, Blood 3.4 g/dL (2.2-4.0); Glomerular Filtration Rate 48 (60-); Glucose, Blood 179 mg/dL (70-99); Potassium, Blood 4.3 mmol/L (3.5-5.5); Sodium, Blood 141 mmol/L (136-145); Total Protein, Blood 6.9 g/dL (6.4-8.2); Troponin I <0.015 ng/mL (0.000-0.040)
[2020-06-20 10:54] LABS: Influenza A, PCR Negative (NEGATIVE); Influenza B, PCR Negative (NEGATIVE); Resp Syncytial Virus, PCR Negative (NEGATIVE); SARS-Cov-2 (COVID-19) PCR, MMC Negative (NEGATIVE)
[2020-06-20] MEDS ORDERED: ALLO100 PO (12:30)
[2020-06-20] MEDS ORDERED: CALC.25 PO (12:31)
[2020-06-20] MEDS ORDERED: MONT10T PO (12:31)
[2020-06-20] MEDS ORDERED: METO50 PO (12:32)
[2020-06-20] MEDS ORDERED: FUROSEMIDE40 MG PO (12:32)
[2020-06-20] MEDS ORDERED: BROVANA15 MCG/21 NEB (12:34)
[2020-06-20] MEDS ORDERED: Simvastatin20 MG PO (12:35)
[2020-06-20] MEDS ORDERED: ALBU2.5V5 NEB (12:35)
[2020-06-20] MEDS ORDERED: CHLO25B PO (12:36)
[2020-06-20] MEDS ORDERED: LOSA50 PO (12:36)
[2020-06-20] MEDS ORDERED: ALDACTONE25 MG PO (12:36)
[2020-06-20] MEDS ORDERED: AMLO10 PO (12:37)
[2020-06-20] MEDS ORDERED: WARF4 PO (12:39)
--- NOTE | 2020-06-20 18:05 | NUR ---
SHIFT SUMMARY PT ADMITTED THIS AFTERNOON TO PCU 8. INITIALLY PT STARTED OUT ON 9L OF O2 VIA OXYMIZER AND TITRATED UP TO 12L. PT CONTINUED TO HAVE DIFFICULTY MAINTAINING SPO2 >88% AND RT WAS CALLED TO BEDSIDE AND PT STARTED ON BIPAP TO RECOVER AND SWITCHED TO CPAP OF 5, FIO2 @ 50%. PT WAS ABLE TO COME OFF OF CPAP FOR DINNER AND PLACED ON 12L OXYMIZER. ENCOURAGED PT TO EAT SLOWLY AND PAUSE TO TAKE A FEW BREATHS BETWEEN BITES TO KEEP SPO2 UP WHILE EATING. ORDERS RECEIVED FOR IV LASIX AND TO HAVE GRIDER PLACED FOR I/0'S. OTHER VITALS HAVE REMAINED STABLE. TELEMETERY HAS SHOWN PT TO BE PACED.
[2020-06-20 18:50] LABS: Source, Urine Catheter
[2020-06-20 18:53] LABS: Appearance, Urine Clear (Clear); Bilirubin, Urine Neg (Neg); Blood, Urine Neg (Neg); Color, Urine Yellow (P-Yellow); Glucose Qualitative, Urine Neg (Neg); Ketones, Urine Neg (Neg); Leukocyte Esterase, Urine Neg (Neg); Nitrite, Urine Neg (Neg); Protein, Urine Neg (Neg); Specific Gravity, Urine 1.015 (1.003-1.022); Urobilinogen, Urine NORM (Normal)
[2020-06-21 04:06] LABS: BASOPHILS ABSOLUTE AUTO 0.01 K/mm3 (0.00-0.23); BASOPHILS PERCENT AUTO 0 % (0-2); EOSINOPHILS PERCENT AUTO 0 % (0-6); Hematocrit 48.3 % (37.0-53.0); Hemoglobin 16.2 g/dL (13.5-17.5); IMMATURE GRAN ABSOLUTE AUTO 0.06 K/mm3 (0.00-0.10); IMMATURE GRAN PERCENT AUTO 1 % (0-1); LYMPHOCYTES ABSOLUTE AUTO 0.87 K/mm3 (0.84-5.20); LYMPHOCYTES PERCENT AUTO 8 % (21-46); MONOCYTES ABSOLUTE AUTO 0.09 K/mm3 (0.16-1.47); MONOCYTES PERCENT AUTO 1 % (4-13); Mean Corpuscular HGB Conc 33.5 g/dL (31.5-36.5); Mean Corpuscular Volume 102 fL (80-100); Mean Platelet Volume 12.3 fL (9.1-12.4); NEUTROPHILS ABSOLUTE AUTO 10.23 K/mm3 (1.96-9.15); NEUTROPHILS PERCENT AUTO 91 % (41-73); Platelet Count 104 K/mm3 (150-400); RDW Coefficient Variation 13.7 % (11.7-14.2); RDW Standard Deviation 50.5 fL (35.1-46.3); Red Blood Cell Count 4.76 M/mm3 (4.30-5.90); White Blood Cell Count 11.26 K/mm3 (4.00-11.30)
[2020-06-21 04:22] LABS: International Normalized Ratio 2.45; Prothrombin Time Results 24.9 Sec (9.7-11.5)
--- NOTE | 2020-06-21 04:29 | NUR ---
SHIFT SUMMARY NO ACUTE CHANGES THIS SHIFT. VSS. REMAINS ON 12L OXYMIZER OR CPAP 12 AND 40% WITH SPO2 92%. LUNG SOUNDS PRESENT WITH LESS CRACKLES THAN BEGINNING OF SHIFT. REMAINS AXO. REMAINS PACED. GRIDER PATENT AND DRAINING YELLOW URINE. HAS DENIEC CP/PRESSURE. PT STATES BREATHING FEELS "EASIER". PT RECEIVED BED BATH THIS SHIFT, DID DESATURATE WITH LOTS OF MOVEMENT, LOW 80'S SPO2, BUT QUICKLY RECOVERED. OTHERWISE, PT TRYING TO SLEEP T/O SHIFT BUT HAS HAD DIFFICULTY STAYIMNG ASLEEP. OTHERWISE, USES CALL LIGHT APPROPRIATELY. WILL CONTINUE TO MONITOR UNTIL SHIFT CHANGE.
[2020-06-21 04:44] LABS: Albumin, Blood 3.5 g/dL (3.4-5.0); Bun/Creatinine Ratio 25.3 (12.0-20.0); Calcium, Blood 8.8 mg/dL (8.5-10.1); Creatinine, Blood 1.66 mg/dL (0.60-1.20); Globulin, Blood 3.5 g/dL (2.2-4.0); Magnesium, Blood 2.2 mg/dL (1.6-2.4); Phosphorus, Blood 3.4 mg/dL (2.5-4.9); Potassium, Blood 4.3 mmol/L (3.5-5.5)
[2020-06-21] MEDS ORDERED: MELATONIN5 M1 PO (21:10)
[2020-06-21] MEDS ORDERED: DIPH25 PO (21:11)
--- NOTE | 2020-06-22 00:20 | NUR ---
ASSUMED CARE OF PATIENT AT APPROXIMATELY 1910 FROM MIKE Quiñonez RN. PATIENT ALERT AND ORIENTED X4; TURNS SELF IN BED. PATIENT DENIES PAIN, NUMBNESS, TINGLING, DIZZINESS OR NAUSEA. PACED ON TELE; OXYGEN SATURATION ABOVE 90% ON 12LPM VIA OXYMIZER OR 35% FIO2. PIV S/L. PATIENT CURRENTLY RESTING IN BED; CALL LIGHT IN REACH; BED IN LOWEST POSISTION; BED ALARM ON; WILL CONTINUE TO MONITOR AND ASSESS UNTIL END OF SHIFT.
[2020-06-22 05:30] LABS: BASOPHILS ABSOLUTE AUTO 0.02 K/mm3 (0.00-0.23); BASOPHILS PERCENT AUTO 0 % (0-2); EOSINOPHILS ABSOLUTE AUTO 0.01 K/mm3 (0.00-0.68); EOSINOPHILS PERCENT AUTO 0 % (0-6); Hematocrit 47.7 % (37.0-53.0); Hemoglobin 15.8 g/dL (13.5-17.5); IMMATURE GRAN ABSOLUTE AUTO 0.12 K/mm3 (0.00-0.10); IMMATURE GRAN PERCENT AUTO 1 % (0-1); LYMPHOCYTES ABSOLUTE AUTO 0.81 K/mm3 (0.84-5.20); LYMPHOCYTES PERCENT AUTO 4 % (21-46); MONOCYTES ABSOLUTE AUTO 0.88 K/mm3 (0.16-1.47); MONOCYTES PERCENT AUTO 5 % (4-13); Mean Corpuscular HGB 34.8 pg (26.0-34.0); Mean Corpuscular HGB Conc 33.1 g/dL (31.5-36.5); Mean Corpuscular Volume 105 fL (80-100); Mean Platelet Volume 12.8 fL (9.1-12.4); NEUTROPHILS ABSOLUTE AUTO 16.57 K/mm3 (1.96-9.15); NEUTROPHILS PERCENT AUTO 90 % (41-73); Platelet Count 100 K/mm3 (150-400); RDW Coefficient Variation 14.1 % (11.7-14.2); RDW Standard Deviation 53.7 fL (35.1-46.3); Red Blood Cell Count 4.54 M/mm3 (4.30-5.90); White Blood Cell Count 18.41 K/mm3 (4.00-11.30)
[2020-06-22 05:43] LABS: International Normalized Ratio 3.18; Prothrombin Time Results 31.9 Sec (9.7-11.5)
[2020-06-22 06:09] LABS: Albumin, Blood 3.4 g/dL (3.4-5.0); Albumin/Globulin Ratio 1.1 (0.8-1.8); Bilirubin, Total 1.5 mg/dL (0.1-1.0); Bun/Creatinine Ratio 34.8 (12.0-20.0); Calcium, Blood 9.1 mg/dL (8.5-10.1); Creatinine, Blood 1.64 mg/dL (0.60-1.20); Potassium, Blood 4.5 mmol/L (3.5-5.5); Total Protein, Blood 6.4 g/dL (6.4-8.2)
--- NOTE | 2020-06-22 06:24 | NUR ---
PATIENT SLEPT ABOUT SEVEN HOURS WITH CPAP IN PLACE. VSS. NO OTHER ACUTE CHANGES TO REPORT.
--- NOTE | 2020-06-22 18:33 | NUR ---
PT SUMMARY: PT WITH NO ACUTE CHANGE FOR THE SHIFT. DENIES ANY PAIN, N/V, DIZZINESS, REMAINS ALERT AND ORIENTED. VITALS HRR PACED AT 60'S, BP SYSTOLIC 100-110'S, SATS ABOVE 92% O2 TITRATED DOWN TO 8L PT IS TOLERATING WELL, AFEBRILE. PT TO START ON PO PREDNISONE TOMORROW. 850 MLS URINE OUT VIA CATHETER URINE YELLOW IN COLOR. PT REMAINED IN BED, ABLE TO MAKE NEEDS KNOWN, CALLS APPROPRIATELY, WILL REPORT TO ONCOMING SHIFT
--- NOTE | 2020-06-22 20:51 | NUR ---
ASSUMED CARE OF PATIENT AT APPROXIMATELY 1910 FROM AILYN Zapata RN. PATIENT ALERT AND ORIENTED X4; TURNS SELF IN BED. PATIENT DENIES PAIN, NUMBNESS, TINGLING, DIZZINESS OR NAUSEA. PACED ON TELE; OXYGEN SATURATION ABOVE 90% ON 7LPM VIA OXYMIZER OR 35% FIO2 CPAP. PIV S/L. PATIENT CURRENTLY RESTING IN BED; CALL LIGHT IN REACH; BED IN LOWEST POSISTION; BED ALARM ON; WILL CONTINUE TO MONITOR AND ASSESS UNTIL END OF SHIFT.
[2020-06-23 04:58] LABS: BASOPHILS ABSOLUTE AUTO 0.01 K/mm3 (0.00-0.23); BASOPHILS PERCENT AUTO 0 % (0-2); EOSINOPHILS ABSOLUTE AUTO 0.01 K/mm3 (0.00-0.68); EOSINOPHILS PERCENT AUTO 0 % (0-6); Hematocrit 47.4 % (37.0-53.0); Hemoglobin 15.6 g/dL (13.5-17.5); IMMATURE GRAN ABSOLUTE AUTO 0.16 K/mm3 (0.00-0.10); IMMATURE GRAN PERCENT AUTO 1 % (0-1); LYMPHOCYTES ABSOLUTE AUTO 0.77 K/mm3 (0.84-5.20); LYMPHOCYTES PERCENT AUTO 5 % (21-46); MONOCYTES ABSOLUTE AUTO 0.52 K/mm3 (0.16-1.47); MONOCYTES PERCENT AUTO 3 % (4-13); Mean Corpuscular HGB 34.4 pg (26.0-34.0); Mean Corpuscular HGB Conc 32.9 g/dL (31.5-36.5); Mean Corpuscular Volume 104 fL (80-100); Mean Platelet Volume 12.3 fL (9.1-12.4); NEUTROPHILS ABSOLUTE AUTO 14.55 K/mm3 (1.96-9.15); NEUTROPHILS PERCENT AUTO 91 % (41-73); Platelet Count 105 K/mm3 (150-400); RDW Standard Deviation 52.9 fL (35.1-46.3); Red Blood Cell Count 4.54 M/mm3 (4.30-5.90); White Blood Cell Count 16.02 K/mm3 (4.00-11.30)
[2020-06-23 05:10] LABS: International Normalized Ratio 2.69; Prothrombin Time Results 27.2 Sec (9.7-11.5)
[2020-06-23 05:47] LABS: Bun/Creatinine Ratio 39.9 (12.0-20.0); Creatinine, Blood 1.58 mg/dL (0.60-1.20); Potassium, Blood 4.9 mmol/L (3.5-5.5)
--- NOTE | 2020-06-23 06:13 | NUR ---
PATIENT SLEPT ABOUT EIGHT HOURS LAST NIGHT. VSS. OXYGEN SATURATION ABOVE 90% ON 5LPM VIA OXYMIZER.
--- NOTE | 2020-06-23 16:06 | NUR ---
PT STATUS CHANGE TO MEDICAL STATUS WITH NO TELE. NO ACUTE CHANGE FOR THE SHIFT, SATS STABLE ABOVE 90% ON 6L OF O2 VIA NC. PT STILL HAS SOB WITH EXERTION. PT WAS ABLE TO STAND TRANSFER TO [facility] FOR TOILETING THIS AM. ALSO WAS SITTING AT BEDSIDE FOR MEALS. VITALS STABLE. DENIES CHEST PAIN/PRESSURE. REMAINS ALERT AND ORIENTED AT BASELINE. PT/OT ORDERED THIS AM, AWAITING FOR EVAL. PT TRANSFERRED TO 360, REPORT GIVEN TO SEBAS MARINELLI. ALL BELONGINGS SENT WITH PT, TRANSFERRED VIA HOSPITAL BED, AT BEDSIDE. .
--- NOTE | 2020-06-23 16:31 | NUR ---
PT TO ROOM 1550. SETTLED TO BED. ON 7L O2. PT A/O PLEASANT TALKATIVE. REPORT RECEIVED FROM AILYN MARINELLI PRIOR TO TRANSFER.
--- NOTE | 2020-06-23 18:11 | NUR ---
PT QUITE PLEASANT SINCE TRANSFER TO FLOOR. ON 6 L O2 AT THIS TIME . 90-92%. CONTINUE TO MONITOR. LUNGS CLEAR T/O AT THIS TIME. WE WERE ABLE TO GIVE BEDBATH THIS SHIFT. PT KATTY WELL. NO SKIN SORES NOTED. PT NOW WATCHING FOOTBALL ON TV. NO NEW CONCERNS AT THIS TIME .BED IN LOW POSITION, CALL LITE IN REACH, CALLS APPROP.
--- NOTE | 2020-06-24 03:57 | NUR ---
Patient slept well without any complaints of discomfort. Very SOB with minimal exertion. A&OX4, hoping to go home in the morning as he feels he is back at his baseline. Using urinal without difficultly. Last bowel movement 06/23/20. Lung sounds clear with slight inspiratory wheezes throughout and crackles in bases
[2020-06-24 05:28] LABS: BASOPHILS ABSOLUTE AUTO 0.02 K/mm3 (0.00-0.23); BASOPHILS PERCENT AUTO 0 % (0-2); EOSINOPHILS PERCENT AUTO 0 % (0-6); Hematocrit 48.3 % (37.0-53.0); Hemoglobin 15.8 g/dL (13.5-17.5); IMMATURE GRAN ABSOLUTE AUTO 0.18 K/mm3 (0.00-0.10); IMMATURE GRAN PERCENT AUTO 1 % (0-1); LYMPHOCYTES ABSOLUTE AUTO 0.74 K/mm3 (0.84-5.20); LYMPHOCYTES PERCENT AUTO 5 % (21-46); MONOCYTES ABSOLUTE AUTO 1.06 K/mm3 (0.16-1.47); MONOCYTES PERCENT AUTO 7 % (4-13); Mean Corpuscular HGB 34.1 pg (26.0-34.0); Mean Corpuscular HGB Conc 32.7 g/dL (31.5-36.5); Mean Corpuscular Volume 104 fL (80-100); Mean Platelet Volume 12.1 fL (9.1-12.4); NEUTROPHILS PERCENT AUTO 87 % (41-73); Platelet Count 95 K/mm3 (150-400); RDW Coefficient Variation 14.1 % (11.7-14.2); RDW Standard Deviation 53.3 fL (35.1-46.3); Red Blood Cell Count 4.63 M/mm3 (4.30-5.90)
[2020-06-24 05:38] LABS: International Normalized Ratio 2.28; Prothrombin Time Results 23.3 Sec (9.7-11.5)
[2020-06-24 05:47] LABS: Bun/Creatinine Ratio 48.5 (12.0-20.0); Calcium, Blood 8.7 mg/dL (8.5-10.1); Creatinine, Blood 1.36 mg/dL (0.60-1.20); Potassium, Blood 4.5 mmol/L (3.5-5.5)
--- NOTE | 2020-06-24 07:42 | NUR ---
ASSUMED CAREOF PT- BEDSIDE REPORT COMPLETED WITH NIGHT RN. PT ALERT AND ORIENTED AND PARTICIPATED IN REPORT. PT ON 5L NC AT BASELINE. CURRENTLY ON 7L NC SATS 90%. SWITCHED TO OXEMIZER AT THE SAME RATE SATS AT 93% WHILE PT IS PREPARING TO WORK WITH THERAPY. SPOKE TO RT MARIAN HE IS AWARE. WILL CHANGE BACK AFTER PT IS DONE WITH ACTIVITY.
--- NOTE | 2020-06-24 12:59 | NUR ---
PATIENT GAVE PERMISSION TO PROVIDE CARE AND ACCESS CHART ON 06/24/2020
--- NOTE | 2020-06-24 20:20 | NUR ---
SHIFT SUMMARY- PT SATS DROP WITH ANY ACTIVITY. SATS GO LOW 76% WHEN PT IS STANDING, O2 INCREASED TO MAX ON HIGH FLOW NC. PT ENCOURAGED TO PURSED LIP BREATHE AND STLII TOOK SEVERAL MINUTES TO RECOVER. RT MARIAN RESPONDED TO THESE EVENTS. PT RECOVERED AND O2 FLOW WAS REDUCED BACK TO 7L. PT SATING AT 89-91% ON 7L VIA HIGH FLOW NC. PT PLEASENT ALERT AND ORIENTED. PER PHYSICAL THERAPY IF PT O2 SATS WOULD MAINTAIN WITH ACTIVITY THE PT COULD BE INDEPENDENT. PT IS STRONG AND ABLE TO TRANSFER WELL BUT ACTIVITY INTOLLERANCE SEEMS TO BE HOLDING HIM BACK AT THIS TIME. AWARE OF THE PT O2 NEEDS, SPOKE ABOUT AN ECHO BUT THE PT HAD ONE 3 MONTHS AGO, SO NO ORDER FOR ONE. PT RECIEVED A DOSE OF IV LASIX OT TODAY. LOTS OF URINE OUTPUT T/O THE SHIFT. PT SITTING UP IN BED AT THE TIME OF SHIFT CHANGE, BEDSIDE REPORT COMPLETED WITH NIGHT RN YAS, NO S&S OF DISTRESS NOTED DURING REPORT. PASSED ALL INFORMATION ON IN REPORT TO NIGHT RN.
--- NOTE | 2020-06-24 22:20 | NUR ---
PATIENT NOW ON CPAP WITH 6L O2 BLEED IN FROM HIS 7L O2 HIGH FLOW NC PER RT.
--- NOTE | 2020-06-25 04:02 | NUR ---
SHIFT SUMMARY PATIENT HAD NO ACUTE CHANGES OBSERVED. AXO X3 AND USES URINAL AT BEDSIDE. ON 7L HIGH FLOW NC AND 4L BASELINE. USES 6L BLEED IN WITH CPAP STATING 92%-96% ON CONTINUOUS PULSE OXIMETRY. PATIENT DESTATS INTO THE HIGH 70'S-LOW 80'S WITH EXERTION. TAKES MEDICATION WHOLE WITH WATER. VSS/AFEBRILE. DENIES PAIN AND N/V. REPORTED INSOMNIA AND MELATONIN 5 MG GIVEN PER EMAR. PIV REMAINS INTACT. CALL LIGHT IN REACH. BED IN LOWEST POSITION. WILL CONTINUE TO MONITOR UNTIL DAY SHIFT NURSE ASSUMES CARE.
[2020-06-25 05:14] LABS: International Normalized Ratio 1.95; Prothrombin Time Results 20.1 Sec (9.7-11.5)
--- NOTE | 2020-06-25 08:33 | NUR ---
TALKED TO ABOUT BLD PRESS 110/60 AND PULSE OF 77. ON MULTIPLE B.P. MEDS AND IV AND P.O LASIX. HOLD P.O LASIX, METOPROLOL, SPIROLACTONE AND LOSARTAN.
--- NOTE | 2020-06-25 15:57 | NUR ---
ALERT. ORIENTED. AT THIS TIME ON 5 LPM VIA HIGH FLOW CANNULA. SATS 88-93%. IS A COPD'ER SO TRING TO GET PATIENT AT HOME OXYGEN OF 4 LPM. DESATS FOR SHORT TIME WITH MOVEMENT ; SUCH , GOING TO BSC BUT DOES RECOVER IN SHORT AMOUNT OF TIME. PLEASANT. COOPERATIVE. ABLE TO MAKE NEEDS KNOWN. GETTING IV LASIX TID WITH HIGH OUTPUT. UNABLE TO MEASURE ALL OUTPUT HAS BEEN USING BSC FOR URINE WHEN HAVING B.M. WCTM
--- NOTE | 2020-06-25 17:38 | NUR ---
DISCUSSED WITH PATIENT USE OF; I.S. AND "PICKLE". ADVISED TO USE DURING COMMERCIALS DOING ABOUT 10 TIMES WHILE WATCHING TV AND TO ALTERNATE EVERY OTHER SET OF COMMERCIALS. VERBALIZED UNDERSTANDING
--- NOTE | 2020-06-25 19:20 | NUR ---
ADMIT: 06/21/19 DISCHARGE: DX: COPD exacerbation CC: ADMIT: 05/01/20 DISCHARGE: 05/07/20 DX: ACUTE ON CHRONIC RESP. FAILURE HYPOXIA ADMIT: 06/11/2019 DISCHARGE: 06/13/19 DX: PERFORATED DIVERTICULUM ADMIT: 12/10/18 DISCHARGE: DX: CELLULITIS CC: CPEABODY WALTER CALL: RESIDENCE: Home with CAREGIVER: PINEDA OROZCO, (SPOUSE / PARTNER), JAMEEL OROZCO (CHILD), DX: Acute & chronic resp. failure, Afib, HTN, CKD-stage 3, see list DME: WHEELCHAIR LIFT, O2 AND SUPPLIES, CPAP, SEE LIST CCM: REFERRAL 2017 HOME HEALTH: [facility], PT. CONTA[facility]ED [facility] 05/07/20 SUMMARY: Admit: 06/21/19 06/25/[address] Juarez, ETA discharge PT OT recommending home with home health. Will follow for discharge planning Wednesday. 06/24/[address] Juarez, treating with lasix, still using 6 l/m 02 per oximyzer cannula. ETA discharge WED or . cp 06/23/19- Per chart review with Dr. Ward, pt's galeano catheter is removed today. Ordered PT and OT. Will gradual wean down O2. No ETA for d/c at this time. -kjw 1. Acute hypoxic respiratory failure secondary to acute exacerbation of chronic obstructive pulmonary disease and bibasilar pneumonia. We will start the patient on empiric coverage with Levaquin and azithromycin, bronchodilators with albuterol and DuoNebs, parenteral steroids with Solu-Medrol. Continue with Singulair at bedtim
[2020-06-26 05:05] LABS: International Normalized Ratio 2.25
--- NOTE | 2020-06-26 05:28 | NUR ---
GRINDING MACHINE OPERATOR SUMMARY PT A&OX4, ABLE TO MAKE NEEDS KNOWN. PLEASANT AND COOPERATIVE TO CARE. NO C/O PAIN OR ANY DISCOMFORT THIS SHIFT. PT CONT ON 5LPM O2 VIA NC. SATS AT 89-93%. TITRATED O2 TO 4LPM EARLY IN THE SHIFT BUT PT DESAT TO 86%. PT USED BIPAP AT HS. NO C/O CP, OR N&V. PT CALM AND RESTED IN BED T/O SHIFT. 1P SBA TO BSC. BED AT LOWEST POSITION, CALL LIGHT WITHIN REACH.
--- NOTE | 2020-06-26 17:43 | NUR ---
PATIENT HAS BEEN PLEASANT AND COOPERATIVE WITH STAFF. GOAL HAS TO MAINTAIN O2 SATS >88%. PATIENT HAS BEEN ON 6L O2 NC MOST OF THE SHIFT AND SATING AT ~92%; TURNED O2 DOWN TO 5L AT 1730 AND PATIENT IS SAT'ING AT 86-88%. WILL CONTINUE TO MONITOR PATIENT IS ON CONTINUOUS BIOX. PATIENT STATED ON IV SOLU-MEDROL THIS EVENING; WILL SEE IF THAT WILL BE OF ANY ASSISTANCE TO PATIENT GIVEN TIME. PATIENT IS GOOD ABOUT TAKE DEEP BREATHS. VITALS OTHERISE STABLE AND WNL. PATIENT CALLS APPROPRIATELY FOR STAFF ASSIST NEEDED. CALL LIGHT IN REACH.
[2020-06-27 05:01] LABS: BASOPHILS ABSOLUTE AUTO 0.04 K/mm3 (0.00-0.23); BASOPHILS PERCENT AUTO 0 % (0-2); EOSINOPHILS PERCENT AUTO 0 % (0-6); Hematocrit 50.9 % (37.0-53.0); Hemoglobin 17.7 g/dL (13.5-17.5); IMMATURE GRAN PERCENT AUTO 1 % (0-1); LYMPHOCYTES ABSOLUTE AUTO 0.62 K/mm3 (0.84-5.20); LYMPHOCYTES PERCENT AUTO 4 % (21-46); MONOCYTES ABSOLUTE AUTO 0.19 K/mm3 (0.16-1.47); MONOCYTES PERCENT AUTO 1 % (4-13); Mean Corpuscular HGB 34.6 pg (26.0-34.0); Mean Corpuscular HGB Conc 34.8 g/dL (31.5-36.5); Mean Corpuscular Volume 100 fL (80-100); NEUTROPHILS ABSOLUTE AUTO 13.08 K/mm3 (1.96-9.15); NEUTROPHILS PERCENT AUTO 93 % (41-73); Platelet Count 115 K/mm3 (150-400); RDW Coefficient Variation 13.6 % (11.7-14.2); RDW Standard Deviation 50.2 fL (35.1-46.3); Red Blood Cell Count 5.11 M/mm3 (4.30-5.90); White Blood Cell Count 14.13 K/mm3 (4.00-11.30)
[2020-06-27 05:15] LABS: International Normalized Ratio 2.86; Prothrombin Time Results 28.8 Sec (9.7-11.5)
[2020-06-27 05:28] LABS: Bun/Creatinine Ratio 52.5 (12.0-20.0); Calcium, Blood 9.4 mg/dL (8.5-10.1); Creatinine, Blood 1.6 mg/dL (0.60-1.20); Magnesium, Blood 2.5 mg/dL (1.6-2.4); Potassium, Blood 4.4 mmol/L (3.5-5.5)
--- NOTE | 2020-06-27 05:42 | NUR ---
SHIFT SUMMARY PT IS A 79 Y/O MALE, ADMITTED FOR COPD EXACERBATION. HE IS A&O X 4, 1PA TO THE BATHROOM C FWW. PT IS CURRENTLY ON 5L OF O2 VIA NC WHILE AWAKE, AND CPAP WITH 8L BLEED IN WHILE SLEEPING. PT DENIED ANY C/O ACUTE PAIN OR NAUSEA, BUT DID REPORT MILD DYSPNEA WITH EXERTION. VITAL SIGNS STABLE. PT IS ON A 2000 ML FLUID RESTRICTION. NO ACUTE CHANGES IN PT CONDITION NOTED. WILL CONTINUE TO MONITOR AND TREAT PER EMAR UNTIL HAND OFF TO DAY SHIFT RN.
[2020-06-27] MEDS ORDERED: AZIT500 PO (15:08)
[2020-06-27] MEDS ORDERED: FLUTICASONE-SA1 EAC1 INH (15:10)
[2020-06-27] MEDS ORDERED: PRED20 PO (15:11)
[2020-06-27] MEDS ORDERED: ZOCOR20 MG PO (15:11)
[2020-06-27] MEDS ORDERED: SPIRIVA RESPIMAT4 G3 INH (15:13)
--- NOTE | 2020-06-27 16:26 | NUR ---
DISCHARGE DISCHARGE MEDICATIONS AND INSTRUCTIONS EXPLAINED TO PATIENT AND PATIENT'S . THEY STATED UNDERSTANDING. EFM TO CALL PATIENT AT HOME FOR FOLLOW UP. IV REMOVED WITHOUT ISSUE. BELONGINGS WITH PATIENT. HOME 02 EVAL COMPLETED. RT UPDATED OXYGEN RX WITH STEPHANIE. PATIENT TRANSFERED TO PRIVATE VEHICLE VIA WHEELCHAIR.
--- NOTE | 2020-06-27 18:37 | NUR ---
SUMMARY: Admit: 06/21/19 06/27/20 DISCHARGE home with , reviewed transition of care letter, discussed follow up appointment in 1 week. Springer to call and schedule. Sent order to [facility] for increased oxygen liter flow. [facility]. Reviewed care coordination, no additional needs beyond what is above. cp
== END 2020-06-27 16:27 | disposition home or self-care (01) | DRG 291 ==
LOC: ER 09:33 → PCU 09:34 → MEDS 06-21 12:28 → PCU 06-21 12:29 → MEDS 06-23 15:55
PROVIDERS: Emergency Medicine; Family Medicine; Internal Medicine; Pharmacist; Physician Assistant; ADMIT Hospitalist
DX: I13.0 Hypertensive heart and chronic kidney disease with heart failure and stage 1 through stage 4 chronic kidney disease, or unspecified chronic kidney disease (principal); J18.9 Pneumonia, unspecified organism; I50.33 Acute on chronic diastolic (congestive) heart failure; J96.21 Acute and chronic respiratory failure with hypoxia; J96.22 Acute and chronic respiratory failure with hypercapnia; I48.20 Chronic atrial fibrillation, unspecified; J44.1 Chronic obstructive pulmonary disease with (acute) exacerbation; J44.0 Chronic obstructive pulmonary disease with (acute) lower respiratory infection; Z20.822 Contact with and (suspected) exposure to COVID-19; N18.30 Chronic kidney disease, stage 3 unspecified; E11.22 Type 2 diabetes mellitus with diabetic chronic kidney disease; D69.6 Thrombocytopenia, unspecified; E66.01 Morbid (severe) obesity due to excess calories; E78.5 Hyperlipidemia, unspecified; Z95.0 Presence of cardiac pacemaker; Z99.81 Dependence on supplemental oxygen; Z87.891 Personal history of nicotine dependence; I73.9 Peripheral vascular disease, unspecified; Z79.01 Long term (current) use of anticoagulants; M06.9 Rheumatoid arthritis, unspecified; Z68.39 Body mass index [BMI] 39.0-39.9, adult
CPT/HCPCS: 0241U; 36415; 71045; 80048; 80053; 81003; 82803; 83735; 83880; 84100; 84145; 84484; 85025; 85610; 93005; 93010; 94640; 94660; 94668; 94761; 94762; 96365; 96367; 96375; 96376; 97110; 97112; 97116; 97162; 97165; 97530; 99285-25; A9270; G0378; J0456; J0696; J1940; J2920; J2930; J3475; J7030; J7050; J7512

== ENCOUNTER → 2020-07-30 | Outpatient (CLI) | payer OTHER ==
[~2020-07-30] MED LIST changes: +ALDACTONE25 MG PO; +ALLO100 PO; +AMLO10 PO; +AZIT250 PO; +AZIT500 PO; +BASAGLAR K100 UNIT/6 SC; +CALC.25 PO; +CEFU500T30 PO; +Cleocin HCl300 MG PO; +Coumadin2 MG; +DIPH25 PO; +FLUTICASONE-SA1 EAC1 INH; +FUROSEMIDE40 MG PO; +IPRAT-ALBUT 0.5-3 ML INH; +LOSA50 PO; +METO50 PO; +MONT10T PO; +PRED10 PO; +PRED20 PO; +Prednisone10 MG PO; +Q-Tussin100 MG/5 M PO; +SPIRIVA RESPIMAT4 G3 INH; +Simvastatin20 MG PO; +WARF4 PO; +ZOCOR20 MG PO
[2020-08-03 00:10] LABS: METANEPH/CREAT RATIO 0.5 (0.0-1.0)
== END | disposition home or self-care (01) ==
LOC: LAB SHORT 08:30 → LAB 08:30 → PLD 08:30
PROVIDERS: Internal Medicine Nephrology
DX: N18.30 Chronic kidney disease, stage 3 unspecified (principal); D63.1 Anemia in chronic kidney disease; N25.81 Secondary hyperparathyroidism of renal origin; E55.9 Vitamin D deficiency, unspecified; E78.00 Pure hypercholesterolemia, unspecified; D51.8 Other vitamin B12 deficiency anemias; D52.8 Other folate deficiency anemias; D50.9 Iron deficiency anemia, unspecified; R76.9 Abnormal immunological finding in serum, unspecified; R94.5 Abnormal results of liver function studies; R94.6 Abnormal results of thyroid function studies
CPT/HCPCS: 82570; 83835

== ENCOUNTER 2020-09-18 21:50 | Observation (INO) | payer OTHER ==
[~2020-09-18] VITALS: Ht 190.5 cm; Wt 136.5 kg
[~2020-09-18 21:50] MED LIST changes: -AZIT250 PO; -BASAGLAR K100 UNIT/6 SC; -CEFU500T30 PO; -Cleocin HCl300 MG PO; -IPRAT-ALBUT 0.5-3 ML INH; -PRED10 PO; -Prednisone10 MG PO; -Q-Tussin100 MG/5 M PO
[2020-09-18 22:27] LABS: BASOPHILS ABSOLUTE AUTO 0.05 K/mm3 (0.00-0.23); BASOPHILS PERCENT AUTO 1 % (0-2); EOSINOPHILS ABSOLUTE AUTO 0.22 K/mm3 (0.00-0.68); EOSINOPHILS PERCENT AUTO 2 % (0-6); Hematocrit 49.5 % (37.0-53.0); IMMATURE GRAN ABSOLUTE AUTO 0.06 K/mm3 (0.00-0.10); IMMATURE GRAN PERCENT AUTO 1 % (0-1); LYMPHOCYTES ABSOLUTE AUTO 2.86 K/mm3 (0.84-5.20); LYMPHOCYTES PERCENT AUTO 28 % (21-46); MONOCYTES ABSOLUTE AUTO 1.07 K/mm3 (0.16-1.47); MONOCYTES PERCENT AUTO 10 % (4-13); Mean Corpuscular HGB 35.6 pg (26.0-34.0); Mean Corpuscular HGB Conc 34.3 g/dL (31.5-36.5); Mean Corpuscular Volume 104 fL (80-100); Mean Platelet Volume 12.3 fL (9.1-12.4); NEUTROPHILS ABSOLUTE AUTO 6.05 K/mm3 (1.96-9.15); NEUTROPHILS PERCENT AUTO 59 % (41-73); Platelet Count 131 K/mm3 (150-400); RDW Coefficient Variation 14.1 % (11.7-14.2); RDW Standard Deviation 54.6 fL (35.1-46.3); Red Blood Cell Count 4.77 M/mm3 (4.30-5.90); White Blood Cell Count 10.31 K/mm3 (4.00-11.30)
[2020-09-18 22:50] LABS: Alanine Aminotransfer (ALT/SGP 32 U/L (12-78); Albumin, Blood 3.6 g/dL (3.4-5.0); Alk Phos 67 U/L (50-136); Anion Gap 8 mmol/L (6-16); Aspartate Aminotrans (AST/SGOT 32 U/L (12-37); Bilirubin, Total 2.2 mg/dL (0.1-1.0); Blood Urea Nitrogen 56 mg/dL (8-24); Bun/Creatinine Ratio 31.3 (12.0-20.0); CO2, Blood 28 mmol/L (21-32); Calcium, Blood 9.1 mg/dL (8.5-10.1); Chloride, Blood 105 mmol/L (98-108); Creatinine, Blood 1.79 mg/dL (0.60-1.20); Globulin, Blood 3.5 g/dL (2.2-4.0); Glomerular Filtration Rate 39 (60-); Glucose, Blood 156 mg/dL (70-99); Potassium, Blood 4.5 mmol/L (3.5-5.5); Sodium, Blood 141 mmol/L (136-145); Total Protein, Blood 7.1 g/dL (6.4-8.2); Troponin I <0.015 ng/mL (0.000-0.040)
[2020-09-19 00:30] LABS: International Normalized Ratio 2.3; Prothrombin Time Results 23.5 Sec (9.7-11.5)
--- NOTE | 2020-09-19 04:38 | NUR ---
SHIFT SUMMARY PT NEW ED ADMIT THIS EVENING. PLEASANT AND COOPERATIVE. PT CAME UP FROM ED WITH NASAL CANNULA ON. O2 SATS IN THE LOW 80'S. TAKEN OFF CPAP JUST BEFORE TRANSPORT. CPAP REPLACED WITH O2 BLEEDIN AT 7-10 L. PT WEARS 7 L AT BASELINE. O2 SATS WITH CPAP IN THE LOW 90'S. PT BECOMES SOB VERY EASILY. PT REPORTS THAT THIS IS NORMAL FOR HIM BUT HAS BEEN MORE SEVERE RECENTLY. LUNG SOUNDS DIMINISHED WITH WHEEZING THROUGHOUT. PT HAS A PACEMAKER. TELEMETRY MONITORING READING SR IN THE 60'S. PT HAS REMAINED IN CPAP SINCE ADMISSION. VITAL SIGNS STABLE. WILL CONTINUE TO MONITOR.
[2020-09-19 05:03] LABS: BASOPHILS ABSOLUTE AUTO 0.02 K/mm3 (0.00-0.23); BASOPHILS PERCENT AUTO 0 % (0-2); EOSINOPHILS PERCENT AUTO 0 % (0-6); Hematocrit 47.7 % (37.0-53.0); Hemoglobin 16.3 g/dL (13.5-17.5); IMMATURE GRAN ABSOLUTE AUTO 0.06 K/mm3 (0.00-0.10); IMMATURE GRAN PERCENT AUTO 1 % (0-1); LYMPHOCYTES ABSOLUTE AUTO 0.54 K/mm3 (0.84-5.20); LYMPHOCYTES PERCENT AUTO 6 % (21-46); MONOCYTES ABSOLUTE AUTO 0.06 K/mm3 (0.16-1.47); MONOCYTES PERCENT AUTO 1 % (4-13); Mean Corpuscular HGB 36.1 pg (26.0-34.0); Mean Corpuscular HGB Conc 34.2 g/dL (31.5-36.5); Mean Corpuscular Volume 106 fL (80-100); Mean Platelet Volume 11.6 fL (9.1-12.4); NEUTROPHILS ABSOLUTE AUTO 9.13 K/mm3 (1.96-9.15); NEUTROPHILS PERCENT AUTO 93 % (41-73); Platelet Count 104 K/mm3 (150-400); RDW Coefficient Variation 14.1 % (11.7-14.2); RDW Standard Deviation 54.8 fL (35.1-46.3); Red Blood Cell Count 4.52 M/mm3 (4.30-5.90); White Blood Cell Count 9.81 K/mm3 (4.00-11.30)
[2020-09-19 05:38] LABS: Albumin, Blood 3.5 g/dL (3.4-5.0); Albumin/Globulin Ratio 1.1 (0.8-1.8); Bun/Creatinine Ratio 29.9 (12.0-20.0); Calcium, Blood 9.2 mg/dL (8.5-10.1); Creatinine, Blood 2.01 mg/dL (0.60-1.20); Globulin, Blood 3.2 g/dL (2.2-4.0); Potassium, Blood 4.6 mmol/L (3.5-5.5); Total Protein, Blood 6.7 g/dL (6.4-8.2)
[2020-09-19 10:27] LABS: International Normalized Ratio 2.24; Prothrombin Time Results 22.9 Sec (9.7-11.5)
--- NOTE | 2020-09-19 14:53 | NUR ---
ADMIT: 09/19/20 DISCHARGE: DX: acute Bronchitis CC:kwilcox WALTER CALL: (can f/u with PCP) RESIDENCE: Home CAREGIVER: Teresita Chávez, Spouse / Partner, Breanna Chávez, Child, DX: Alcohol dependence, acute on chronic hypoxemic respiratory failure, Afib, HTN, CKD-stage 3, see list DME: wheelchair, O2 and equipment, CPAP, DM supplies, Nebulizer and supplies, compression hose CCM: Referral 2017 HOME HEALTH: [facility]- current SUMMARY: Admit: 09/19/20 09/19/20- per chart review with Dr. Rivera, pt is doing better. He is on O2 and plan is to d/c him home tomorrow. Met with pt, he states that he is doing well and he does not have any needs. He would like to be d/c prior to his appt at 4pm tomorrow for his COVID vaccine. Will discuss this with the doctor. Reviewed WALTER letter with him. He states that his will be able to come and get him. He acknowledged that he will need to schedule f/u appt with PCP once d/c.-rachel
--- NOTE | 2020-09-19 17:29 | NUR ---
SHIFT SUMMARY PATIENT DENIES PAIN AND NAUSEA. VERY DYSPNEIC WITH ANY ACTIVITY. MAINTAINING OXYGEN SATURATION BETWEEN 89 AND 90 AT 9L/NC. REQUIRES 9-13 WITH EXERTION AND FOR RECOVERY AFTER ACTIVITY. UP TO BSC THIS AFTERNOON. AT BEDSIDE. PLEASANT AND COOPERATIVE WITH CARE.
--- NOTE | 2020-09-20 05:03 | NUR ---
SHIFT SUMMARY PT CONTINUES TO REQUIRE LARGE AMOUNTS OF O2, HOWEVER PT IS ON 7 L AT BASELINE CONTINUOUSLY. THIS EVENING PT ON 10-13 L VIA HIGH FLOW NC WHEN NOT ON CPAP AND 8-10 L BLEEDIN WITH CPAP. PT ON CPAP MOST OF THE NIGHT. O2 SATS IN THE LOW 90'S. PT'S LUNG SOUNDS DIM THROUGHOUT. BREATHING SLIGHTLY LABORED AT ALL TIMES. PT DESATS AND BECOMES SOB WITH MINIMAL EXERTION. PT DID SLEEP MOST OF THE EVENING AFTER HS MEDICATIONS AND CPAP PLACED. VITAL SIGNS STABLE. NO ACUTE EVENTS THIS EVENING. WILL CONTINUE TO MONITOR.
[2020-09-20 05:10] LABS: International Normalized Ratio 2.04
--- NOTE | 2020-09-20 14:27 | NUR ---
09/20/20- per Dr. Hutton, pt's need for O2 has increase. He is on 6L with an increase to 15L with exerction. Dr. Hutton has ordered testing to look for pulmonary embolism. Dr. Hutton is concerned about CHF. Dr. Hutton does not have plan for d/c at this time. -rachel
[2020-09-20 17:56] LABS: Adenovirus Not Detected (NOT DETECT); Bordetella pertussis Not Detected (NOT DETECT); Chlamydophila pneumoniae Not Detected (NOT DETECT); Coronavirus 229E Not Detected (NOT DETECT); Coronavirus HKU1 Not Detected (NOT DETECT); Coronavirus NL63 Not Detected (NOT DETECT); Coronavirus OC43 Not Detected (NOT DETECT); Human Metapneumovirus Not Detected (NOT DETECT); Human Rhinovirus/Enterovirus Not Detected (NOT DETECT); Influenza A/2009-H1 Not Detected (NOT DETECT); Influenza A/H1 Not Detected (NOT DETECT); Influenza A/H3 Not Detected (NOT DETECT); Influenza B Not Detected (NOT DETECT); Mycoplasma pneumoniae Not Detected (NOT DETECT); Parainfluenza Virus 1 Not Detected (NOT DETECT); Parainfluenza Virus 2 Not Detected (NOT DETECT); Parainfluenza Virus 3 Not Detected (NOT DETECT); Parainfluenza Virus 4 Not Detected (NOT DETECT); Respiratory Syncytial Virus Not Detected (NOT DETECT); SARS-Cov-2 (COVID-19), BioFire Not Detected (NOT DETECT)
--- NOTE | 2020-09-20 18:17 | NUR ---
SHIFT SUMMARY PATIENT DENIES PAIN, NAUSEA, AND SHORTNESS OF BREATH. PATIENT MAINTAINING OXYGEN SATURATION BETWEEN 89-91% ON 8L/HIFLOW NC. PATIENT LESS DYSPNEIC TODAY WITH ACTIVITY. EATING AND DRINKING WELL. UP SBA TO BSC. VENT PERFUSION STUDY COMPLETED. RESPIRATORY PANEL NEGATIVE. VISITED IN AFTERNOON.
[2020-09-21 04:51] LABS: BASOPHILS ABSOLUTE AUTO 0.01 K/mm3 (0.00-0.23); BASOPHILS PERCENT AUTO 0 % (0-2); EOSINOPHILS PERCENT AUTO 0 % (0-6); Hematocrit 44.7 % (37.0-53.0); Hemoglobin 15.1 g/dL (13.5-17.5); IMMATURE GRAN ABSOLUTE AUTO 0.11 K/mm3 (0.00-0.10); IMMATURE GRAN PERCENT AUTO 1 % (0-1); LYMPHOCYTES ABSOLUTE AUTO 0.84 K/mm3 (0.84-5.20); LYMPHOCYTES PERCENT AUTO 6 % (21-46); MONOCYTES ABSOLUTE AUTO 0.27 K/mm3 (0.16-1.47); MONOCYTES PERCENT AUTO 2 % (4-13); Mean Corpuscular HGB 35.4 pg (26.0-34.0); Mean Corpuscular HGB Conc 33.8 g/dL (31.5-36.5); Mean Corpuscular Volume 105 fL (80-100); NEUTROPHILS ABSOLUTE AUTO 12.56 K/mm3 (1.96-9.15); NEUTROPHILS PERCENT AUTO 91 % (41-73); Platelet Count 126 K/mm3 (150-400); RDW Coefficient Variation 14.2 % (11.7-14.2); RDW Standard Deviation 54.4 fL (35.1-46.3); Red Blood Cell Count 4.26 M/mm3 (4.30-5.90); White Blood Cell Count 13.79 K/mm3 (4.00-11.30)
[2020-09-21 05:06] LABS: International Normalized Ratio 2.87; Prothrombin Time Results 28.9 Sec (9.7-11.5)
[2020-09-21 05:16] LABS: Albumin, Blood 3.4 g/dL (3.4-5.0); Anion Gap 6 mmol/L (6-16); Blood Urea Nitrogen 90 mg/dL (8-24); Bun/Creatinine Ratio 49.5 (12.0-20.0); CO2, Blood 28 mmol/L (21-32); Calcium, Blood 8.7 mg/dL (8.5-10.1); Chloride, Blood 102 mmol/L (98-108); Creatinine, Blood 1.82 mg/dL (0.60-1.20); Glomerular Filtration Rate 38 (60-); Glucose, Blood 210 mg/dL (70-99); Magnesium, Blood 2.7 mg/dL (1.6-2.4); Phosphorus, Blood 4.9 mg/dL (2.5-4.9); Sodium, Blood 136 mmol/L (136-145)
--- NOTE | 2020-09-21 05:36 | NUR ---
LICENSED LAND SURVEYOR SUMMARY PT A/O X4. SLEPT WELL TONIGHT. DENIES PAIN, NAUSEA. CPAP OVERNIGHT WITH CONTINOUS PULSE O2 SATTING IN THE LOW 90'S. PT REQUIRES 8-10L VIA HIGH FLOW DURING THE DAY. DOES HAVE EXERTIONAL SOB. SALESPERSON MEN'S HATS REPORTS PACED IN THE 60'S. PT HAS A PACEMAKER IN PLACE. VSS. NO ACUTE CHANGES. CALL LIGHT WITHIN REACH.
[2020-09-21] MEDS ORDERED: AZIT250 PO (17:49)
[2020-09-21] MEDS ORDERED: CEFU500T30 PO (17:50)
[2020-09-21] MEDS ORDERED: Q-Tussin100 MG/5 M PO (17:51)
[2020-09-21] MEDS ORDERED: BASAGLAR K100 UNIT/6 SC (17:52)
[2020-09-21] MEDS ORDERED: IPRAT-ALBUT 0.5-3 ML INH (17:53)
[2020-09-21] MEDS ORDERED: Prednisone10 MG PO (17:55)
--- NOTE | 2020-09-21 18:38 | NUR ---
1830 PT DISCHARGED HOME VIA PERSONAL VEHICLE ACCOMPANIED AND DRIVEN BY WITH HOME O2. ESCORTED TO ENTRANCE VIA W/C BY SURGICAL GARMENT FITTER. IV REMOVED. NEW RX FAXED TO [facility] PER PT REQUEST. D/C INSTRUCTIONS REVIEWED WITH PT AND AND COPY PROVIDED. DIABETIC EDUCATION INCLUDING INSULIN PEN DEMONSTRATION AND REDEMONSTRATION COMPLETED WITH PT'S . PT ON 8L O2 NC AT TIME OF D/C.
== END 2020-09-21 18:30 | disposition home or self-care (01) ==
LOC: ER 21:50 → MEDS 21:52 → ER 09-19 00:55 → MEDS 09-19 00:55
PROVIDERS: Emergency Medicine; Internal Medicine Gastroenterology; Pharmacist; ADMIT Internal Medicine
DX: J44.0 Chronic obstructive pulmonary disease with (acute) lower respiratory infection (principal); J20.9 Acute bronchitis, unspecified; J44.1 Chronic obstructive pulmonary disease with (acute) exacerbation; I13.0 Hypertensive heart and chronic kidney disease with heart failure and stage 1 through stage 4 chronic kidney disease, or unspecified chronic kidney disease; N18.30 Chronic kidney disease, stage 3 unspecified; I50.33 Acute on chronic diastolic (congestive) heart failure; I27.20 Pulmonary hypertension, unspecified; E11.22 Type 2 diabetes mellitus with diabetic chronic kidney disease; E11.51 Type 2 diabetes mellitus with diabetic peripheral angiopathy without gangrene; I48.91 Unspecified atrial fibrillation; G47.30 Sleep apnea, unspecified; J96.11 Chronic respiratory failure with hypoxia; M10.9 Gout, unspecified; E78.00 Pure hypercholesterolemia, unspecified; Z79.51 Long term (current) use of inhaled steroids; Z99.81 Dependence on supplemental oxygen; Z88.0 Allergy status to penicillin; Z95.0 Presence of cardiac pacemaker; Z20.822 Contact with and (suspected) exposure to COVID-19
CPT/HCPCS: 0202U; 36415; 71045; 78582; 80053; 80069; 82947; 83735; 83880; 84484; 85025; 85610; 93005; 93010; 94640; 94644; 94660; 94762; 96365; 96375; 96376; 99285-25; A9270; A9540; G0378; J0456; J0696; J1940; J2920; J7050; J7512

== ENCOUNTER 2020-10-14 10:59 | Emergency (ER) | payer OTHER ==
[~2020-10-14] VITALS: Ht 188 cm; Wt 133.8 kg
[~2020-10-14 10:59] MED LIST changes: +AZIT250 PO; +BASAGLAR K100 UNIT/6 SC; +CEFU500T30 PO; +IPRAT-ALBUT 0.5-3 ML INH; +Prednisone10 MG PO; +Q-Tussin100 MG/5 M PO
[2020-10-14 11:28] LABS: BASOPHILS ABSOLUTE AUTO 0.04 K/mm3 (0.00-0.23); BASOPHILS PERCENT AUTO 1 % (0-2); EOSINOPHILS ABSOLUTE AUTO 0.25 K/mm3 (0.00-0.68); EOSINOPHILS PERCENT AUTO 3 % (0-6); Hematocrit 47.5 % (37.0-53.0); Hemoglobin 16.2 g/dL (13.5-17.5); IMMATURE GRAN ABSOLUTE AUTO 0.03 K/mm3 (0.00-0.10); IMMATURE GRAN PERCENT AUTO 0 % (0-1); LYMPHOCYTES ABSOLUTE AUTO 1.92 K/mm3 (0.84-5.20); LYMPHOCYTES PERCENT AUTO 22 % (21-46); MONOCYTES ABSOLUTE AUTO 0.78 K/mm3 (0.16-1.47); MONOCYTES PERCENT AUTO 9 % (4-13); Mean Corpuscular HGB 35.3 pg (26.0-34.0); Mean Corpuscular HGB Conc 34.1 g/dL (31.5-36.5); Mean Corpuscular Volume 104 fL (80-100); Mean Platelet Volume 11.8 fL (9.1-12.4); NEUTROPHILS ABSOLUTE AUTO 5.69 K/mm3 (1.96-9.15); NEUTROPHILS PERCENT AUTO 65 % (41-73); NRBC ABSOLUTE 0.02 K/mm3 (0.00-0.02); NRBC Auto 0.2 /100 WBC (0.0-0.2); Platelet Count 97 K/mm3 (150-400); RDW Coefficient Variation 13.8 % (11.7-14.2); RDW Standard Deviation 51.4 fL (35.1-46.3); Red Blood Cell Count 4.59 M/mm3 (4.30-5.90); White Blood Cell Count 8.71 K/mm3 (4.00-11.30)
[2020-10-14 11:43] LABS: D-Dimer, Quantitative 0.45 mg/L FEU (0.00-0.52); International Normalized Ratio 2.56; Prothrombin Time Results 26.2 Sec (9.7-11.5)
[2020-10-14 11:47] LABS: Albumin, Blood 3.6 g/dL (3.4-5.0); Albumin/Globulin Ratio 1.2 (0.8-1.8); Bilirubin, Total 2.4 mg/dL (0.1-1.0); Bun/Creatinine Ratio 20.5 (12.0-20.0); Calcium, Blood 9.4 mg/dL (8.5-10.1); Creatinine, Blood 1.71 mg/dL (0.60-1.20); Globulin, Blood 3.1 g/dL (2.2-4.0); Potassium, Blood 4.3 mmol/L (3.5-5.5); Total Protein, Blood 6.7 g/dL (6.4-8.2); Troponin I 0.025 ng/mL (0.000-0.040)
[2020-10-14] MEDS ORDERED: PRED10 PO (12:26)
== END 2020-10-14 12:33 | disposition home or self-care (01) ==
LOC: ER 10:59
PROVIDERS: Emergency Medicine
DX: J44.9 Chronic obstructive pulmonary disease, unspecified (principal); I48.91 Unspecified atrial fibrillation; I10 Essential (primary) hypertension; Z88.0 Allergy status to penicillin; Z79.899 Other long term (current) drug therapy; Z87.891 Personal history of nicotine dependence
CPT/HCPCS: 71045; 80053; 83880; 84484; 85025; 85379; 85610; 93005; 93010; 99285-25

== ENCOUNTER 2020-12-26 00:47 | Emergency (ER) | payer OTHER ==
[~2020-12-26] VITALS: Ht 188 cm; Wt 88.5 kg
[~2020-12-26 00:47] MED LIST changes: +PRED10 PO
[2020-12-26 02:58] LABS: BASOPHILS ABSOLUTE AUTO 0.03 K/mm3 (0.00-0.23); BASOPHILS PERCENT AUTO 0 % (0-2); EOSINOPHILS ABSOLUTE AUTO 0.15 K/mm3 (0.00-0.68); EOSINOPHILS PERCENT AUTO 1 % (0-6); Hematocrit 49.9 % (37.0-53.0); Hemoglobin 16.3 g/dL (13.5-17.5); IMMATURE GRAN ABSOLUTE AUTO 0.08 K/mm3 (0.00-0.10); IMMATURE GRAN PERCENT AUTO 1 % (0-1); LYMPHOCYTES ABSOLUTE AUTO 1.32 K/mm3 (0.84-5.20); LYMPHOCYTES PERCENT AUTO 10 % (21-46); MONOCYTES ABSOLUTE AUTO 1.64 K/mm3 (0.16-1.47); MONOCYTES PERCENT AUTO 12 % (4-13); Mean Corpuscular HGB 32.7 pg (26.0-34.0); Mean Corpuscular HGB Conc 32.7 g/dL (31.5-36.5); Mean Corpuscular Volume 100 fL (80-100); NEUTROPHILS ABSOLUTE AUTO 10.31 K/mm3 (1.96-9.15); NEUTROPHILS PERCENT AUTO 76 % (41-73); Platelet Count 71 K/mm3 (150-400); RDW Coefficient Variation 13.9 % (11.7-14.2); RDW Standard Deviation 51.5 fL (35.1-46.3); Red Blood Cell Count 4.98 M/mm3 (4.30-5.90); White Blood Cell Count 13.53 K/mm3 (4.00-11.30)
[2020-12-26 03:03] LABS: Mean Platelet Volume 13.2 fL (9.1-12.4)
[2020-12-26 03:11] LABS: Bun/Creatinine Ratio 35.5 (12.0-20.0); Calcium, Blood 8.9 mg/dL (8.5-10.1); Creatinine, Blood 2.31 mg/dL (0.60-1.20); International Normalized Ratio 2.35; Potassium, Blood 4.5 mmol/L (3.5-5.5); Prothrombin Time Results 24.2 Sec (9.7-11.5)
[2020-12-26] MEDS ORDERED: Cleocin HCl300 MG PO (03:30)
== END 2020-12-26 04:45 | disposition home or self-care (01) ==
LOC: ER 00:47
PROVIDERS: Emergency Medicine
DX: K04.7 Periapical abscess without sinus (principal); J44.9 Chronic obstructive pulmonary disease, unspecified; I48.91 Unspecified atrial fibrillation; I10 Essential (primary) hypertension; Z95.0 Presence of cardiac pacemaker; Z87.891 Personal history of nicotine dependence
CPT/HCPCS: 36415; 70450; 80048; 85025; 85610; 99284-25; A9270

== ENCOUNTER → 2021-01-10 | Outpatient (CLI) | payer OTHER ==
[~2021-01-10] MED LIST changes: +Cleocin HCl300 MG PO
[2021-01-14 09:08] LABS: METANEPHRINE, UR 115 ug/L (Undefined)
== END | disposition home or self-care (01) ==
LOC: LAB SHORT 10:46
PROVIDERS: Internal Medicine Nephrology
DX: N18.30 Chronic kidney disease, stage 3 unspecified (principal); D63.1 Anemia in chronic kidney disease; N25.81 Secondary hyperparathyroidism of renal origin; E55.9 Vitamin D deficiency, unspecified; E78.00 Pure hypercholesterolemia, unspecified; D51.8 Other vitamin B12 deficiency anemias; D52.8 Other folate deficiency anemias; D50.9 Iron deficiency anemia, unspecified; R76.9 Abnormal immunological finding in serum, unspecified; R94.5 Abnormal results of liver function studies; R94.6 Abnormal results of thyroid function studies
CPT/HCPCS: 81050; 83835

== ENCOUNTER 2021-01-26 13:40 | Inpatient (IN) | payer OTHER ==
[~2021-01-26] VITALS: Ht 188 cm; Wt 140.6 kg
[2021-01-26 14:46] LABS: BASOPHILS ABSOLUTE AUTO 0.02 K/mm3 (0.00-0.23); BASOPHILS PERCENT AUTO 0 % (0-2); EOSINOPHILS ABSOLUTE AUTO 0.02 K/mm3 (0.00-0.68); EOSINOPHILS PERCENT AUTO 0 % (0-6); Hematocrit 50.4 % (37.0-53.0); Hemoglobin 15.7 g/dL (13.5-17.5); IMMATURE GRAN ABSOLUTE AUTO 0.07 K/mm3 (0.00-0.10); IMMATURE GRAN PERCENT AUTO 1 % (0-1); LYMPHOCYTES ABSOLUTE AUTO 0.94 K/mm3 (0.84-5.20); LYMPHOCYTES PERCENT AUTO 8 % (21-46); MONOCYTES ABSOLUTE AUTO 1.19 K/mm3 (0.16-1.47); MONOCYTES PERCENT AUTO 10 % (4-13); Mean Corpuscular HGB Conc 31.2 g/dL (31.5-36.5); Mean Corpuscular Volume 100 fL (80-100); NEUTROPHILS ABSOLUTE AUTO 10.17 K/mm3 (1.96-9.15); NEUTROPHILS PERCENT AUTO 82 % (41-73); NRBC ABSOLUTE 0.03 K/mm3 (0.00-0.02); NRBC Auto 0.2 /100 WBC (0.0-0.2); RDW Coefficient Variation 15.1 % (11.7-14.2); RDW Standard Deviation 55.8 fL (35.1-46.3); Red Blood Cell Count 5.06 M/mm3 (4.30-5.90); White Blood Cell Count 12.41 K/mm3 (4.00-11.30)
[2021-01-26 15:09] LABS: Platelet Count 36 K/mm3 (150-400)
[2021-01-26 15:15] LABS: International Normalized Ratio 3.48
[2021-01-26 15:20] LABS: Albumin, Blood 3.5 g/dL (3.4-5.0); Albumin/Globulin Ratio 1.4 (0.8-1.8); Bilirubin, Total 1.8 mg/dL (0.1-1.0); Bun/Creatinine Ratio 26.9 (12.0-20.0); Calcium, Blood 8.7 mg/dL (8.5-10.1); Creatinine, Blood 3.42 mg/dL (0.60-1.20); Globulin, Blood 2.5 g/dL (2.2-4.0); Potassium, Blood 5.5 mmol/L (3.5-5.5)
[2021-01-26 15:55] LABS: Troponin I 0.578 ng/mL (0.000-0.040)
--- NOTE | 2021-01-26 20:30 | NUR ---
REPORT RECEIVED FROM ED RN, PT TRANSPORTED TO MEDICAL FLOOR VIA GURNEY, SLIDE TRANSFERRED TO BED VIA SLIDE SHEET AND ASSIST OF 4. TOLERATED FAIRLY. PT'S FACE ASHEN COLORED, ON 13L/OXYMIZER; INCREASED TO 15L AND HOB ELEVATED TO 90 DEGREES; COLOR IMPROVING. OTHER VS WNL. PT DENIES PAIN/DISCOMFORT. ORIENTED TO ROOM/UNIT. NO ACUTE NEEDS ASSESSED AT THIS TIME. CALL LIGHT, POSSESSIONS IN REACH, BED IN LOW AND LOCKED POSITION. PT NPO.
[2021-01-27 05:02] LABS: BASOPHILS ABSOLUTE AUTO 0.01 K/mm3 (0.00-0.23); BASOPHILS PERCENT AUTO 0 % (0-2); EOSINOPHILS PERCENT AUTO 0 % (0-6); Hematocrit 51.1 % (37.0-53.0); Hemoglobin 16.2 g/dL (13.5-17.5); IMMATURE GRAN ABSOLUTE AUTO 0.06 K/mm3 (0.00-0.10); IMMATURE GRAN PERCENT AUTO 1 % (0-1); LYMPHOCYTES ABSOLUTE AUTO 0.55 K/mm3 (0.84-5.20); LYMPHOCYTES PERCENT AUTO 5 % (21-46); MONOCYTES ABSOLUTE AUTO 0.07 K/mm3 (0.16-1.47); MONOCYTES PERCENT AUTO 1 % (4-13); Mean Corpuscular HGB 31.2 pg (26.0-34.0); Mean Corpuscular HGB Conc 31.7 g/dL (31.5-36.5); Mean Corpuscular Volume 98 fL (80-100); NEUTROPHILS ABSOLUTE AUTO 10.16 K/mm3 (1.96-9.15); NEUTROPHILS PERCENT AUTO 94 % (41-73); NRBC ABSOLUTE 0.02 K/mm3 (0.00-0.02); NRBC Auto 0.2 /100 WBC (0.0-0.2); RDW Coefficient Variation 14.8 % (11.7-14.2); RDW Standard Deviation 53.7 fL (35.1-46.3); White Blood Cell Count 10.85 K/mm3 (4.00-11.30)
[2021-01-27 05:22] LABS: Bun/Creatinine Ratio 31.4 (12.0-20.0); Creatinine, Blood 2.99 mg/dL (0.60-1.20); Magnesium, Blood 2.8 mg/dL (1.6-2.4); Potassium, Blood 5.5 mmol/L (3.5-5.5)
[2021-01-27 05:38] LABS: Platelet Count 37 K/mm3 (150-400)
--- NOTE | 2021-01-27 07:51 | NUR ---
[facility] SUMMARY PT RESTING, IN NAD. VS REVIEWED,WNL. TITRATED TO 11L/OXYMIZER D/T SATS 95%; INCREASED TO 14L WITH ACTIVITY. APPEARED TO SLEEP WELL T/O NIGHT. PLATELETS REMAIN LOW, BUT TRENDING IN EXPECTED DIRECTION. NO OTHER ACUTE CHANGES TO REPORT OVERNIGHT. PT DENIES NEEDS AT THIS TIME. CALL LIGHT, POSSESSIONS IN REACH, BED IN LOW AND LOCKED POSITION. ON 14L/OXYMIZER AT THIS TIME, O2 SATS 88-89%. SCDS APPLIED. REPORT GIVEN TO YVES VALENCIA.
--- NOTE | 2021-01-27 15:49 | NUR ---
PT DESATING DURING ECHO AFTER USING THE URINAL AND REPOSITIONING, SATS MID 80'S ON 13 L OXIMIZER. VISABLY SHORT OF BREATH. IV SOLUMEDROL GIVEN PER MD ORDERS. AND PT PLACED ON CPAP. SATS 90% NOW.
--- NOTE | 2021-01-27 16:41 | NUR ---
Echocardiogram using 9.0ml of agitated saline contrast and 0.50ml of Definity contrast performed.
--- NOTE | 2021-01-27 16:55 | NUR ---
PT SATS MID TO LOW 80'S PT SATS DROPPED AGAIN. TURNED CPAP BLEEDIN UP TO 15L. PTS SATS REMAINED LOW. RESP THERAPY BASILIA INTO ROOM CHANGED CPAP SETTING TO BIPAP /. PTS SATS 90-91%. CALL TO DR KEENAN RAMIREZ, LEFT MESSAGE
--- NOTE | 2021-01-27 17:25 | NUR ---
Pt on high flow oxygen and sats maintaining at about 85% She is labored and struggling with speech slightly. He states this is a recent change. Pt denies headaches, or dizziness, he has chronic ringing in his ears, he denies falls and his mobility has declined greatly. No nausea good appetite. recent changes in his life are he had to put his beloved pt to sleep recently. He has several physician and specialist most recently he has seen his primary and dr mancia. This past month his primary INVESTIGATION DIVISION SERGEANT adjusted his BP medications. He is struggling with starting his urine flow and feels the need to void frequently. He denies constipation or loose stools. When asked about his activity level and stress. He states since covid he not really been anywhere. He has freinds over about once a month to play cards. He feels he is struggling with depression. arrived and we discussed his advance directive and POA and his code status. pt did not have a clear understanding of ventilator care and CPR. We reviewed levels of care and quality of life. Pt pps score is 50% did not discuss hospice with pt will see what phsycian has planned and how his echo looks and formultate assisted plan. pt high risk for readmission.pt quality of life may be improved by hospice care sooner that later.
--- NOTE | 2021-01-27 18:28 | NUR ---
SHIFT SUMMARY DR VO CAME TO ROOM EARLIER AND TALKED WITH PT AND SPOUSE, PT CHANGED TO DNR. PURPLE DNR BAND APPLIED VERIFIED WITH KARYN RN. PT DESATS VERY EASILY WITH ANY ACTIVITY AND WITH TALKING. PLACED ON OXIMIZER AT 15 L SO PT CAN EAT DINNER SATS 87-88%. PT A&O PLEASENT AND COOPERATIVE. BEDREST, ASSISTED WITH REPOSITIONING Q2H AND PRN. NO C/O PAIN. PT HAD ECHO TODAY. PT AND SPOUSE CONSIDERING HOSPICE
--- NOTE | 2021-01-27 18:36 | NUR ---
Update 02/27/21: Per chart review with Dr. Sibley, patient's condition has been declining. He has required 12-15 LPM O2 to maintain SPO2 within the high 80's to 90% during hospital stay thus far. Palliative care consult requested by Dr. Sibley. Olrri with palliative care met with pt. and today to discuss goals and quality of life. Pt. struggling with depression. Potential for hospice admission. Pt. currently receives HHC through [facility]. Will need order for resumption of HHC if indicated at time of discharge. Pt. on Coumadin with HH providing blood draw for INR outpatient. Plan to contact patient's tomorrow to discuss care coordination and potential discharge needs.
--- NOTE | 2021-01-28 02:17 | NUR ---
01/27/21 2208 PT LYING IN BED, DENIES ANY DISCOMFORT AT THIS TIME. CPAP IS IN PLACE WITH 15L O2. BS WAS 246. NO APPARENT SIGNS OF DISTRESS. CALL LIGHT IS IN REACH.
--- NOTE | 2021-01-28 03:12 | NUR ---
01/27/21 2343 PT LYING IN BED, AWAKE, NO APPARENT SIGNS OF DISTRESS. CALL LIGHT IS IN REACH. PT DENIES NEED FOR ANYTHING AT THIS TIME.
--- NOTE | 2021-01-28 03:14 | NUR ---
0200 PT LYING IN BED, EYES CLOSED, APPEARS TO BE RESTING. CPAP IS IN PLACE. CALL LIGHT IS IN REACH. NO APPARENT SIGNS OF DISTRESS.
[2021-01-28 04:49] LABS: SARS-Cov-2 (COVID-19) PCR, MMC NEGATIVE (NEGATIVE)
[2021-01-28 04:54] LABS: BASOPHILS ABSOLUTE AUTO 0.01 K/mm3 (0.00-0.23); BASOPHILS PERCENT AUTO 0 % (0-2); EOSINOPHILS PERCENT AUTO 0 % (0-6); Hemoglobin 15.9 g/dL (13.5-17.5); IMMATURE GRAN ABSOLUTE AUTO 0.07 K/mm3 (0.00-0.10); IMMATURE GRAN PERCENT AUTO 1 % (0-1); LYMPHOCYTES ABSOLUTE AUTO 0.71 K/mm3 (0.84-5.20); LYMPHOCYTES PERCENT AUTO 6 % (21-46); MONOCYTES ABSOLUTE AUTO 0.31 K/mm3 (0.16-1.47); MONOCYTES PERCENT AUTO 3 % (4-13); Mean Corpuscular HGB Conc 31.2 g/dL (31.5-36.5); Mean Corpuscular Volume 99 fL (80-100); NEUTROPHILS ABSOLUTE AUTO 9.99 K/mm3 (1.96-9.15); NEUTROPHILS PERCENT AUTO 90 % (41-73); NRBC ABSOLUTE 0.03 K/mm3 (0.00-0.02); NRBC Auto 0.3 /100 WBC (0.0-0.2); RDW Coefficient Variation 15.2 % (11.7-14.2); RDW Standard Deviation 55.8 fL (35.1-46.3); Red Blood Cell Count 5.13 M/mm3 (4.30-5.90); White Blood Cell Count 11.09 K/mm3 (4.00-11.30)
[2021-01-28 05:07] LABS: Platelet Count 40 K/mm3 (150-400)
--- NOTE | 2021-01-28 05:14 | NUR ---
0400 PT LYING IN BED, EYES CLOSED, APPEARS TO BE RESTING. BREATHING IS EVEN, UNLABORED. NO APPARENT SIGNS OF DISTRESS. CALL LIGHT IS IN REACH. BIPAP IS ON.
[2021-01-28 05:20] LABS: Bun/Creatinine Ratio 37.9 (12.0-20.0); Creatinine, Blood 2.8 mg/dL (0.60-1.20); Potassium, Blood 5.7 mmol/L (3.5-5.5)
--- NOTE | 2021-01-28 05:45 | NUR ---
PT IS AAO X 4, ON BIPAP WITH 15L O2 AT 91%. DESATS EASILY. DENIES ANY OTHER DISCOMFORT FOR THIS SHIFT. BS 246.
--- NOTE | 2021-01-28 05:50 | NUR ---
PT LYING IN BED, EYES CLOSED, BIPAP WITH 15L O2. NO APPARENT SIGNS OF DISTRESS. CALL LIGHT IS IN REACH. NO OTHER CHANGES THIS SHIFT.
--- NOTE | 2021-01-28 16:45 | NUR ---
Update 02/28/21: Per chart review, ECHO order still shows as in process. Patient's SPO2 88-90% today on 15 LPM. Patient and family would like to wait for ECHO results to make decisions regarding home health or hospice care. No further updates. Will contact patient's in the am to check-in.
--- NOTE | 2021-01-28 17:11 | NUR ---
SHIFT SUMMARY. A&OX4, PLEASANT AND COOPERATIVE WITH CARE. PT DENIES PAIN, N/V. PT REPORTS SOB THAT INCREASES WITH EXERTION. CONTINUES WITH 15L O2 NC, LUNGS CLEAR ALTHOUGH DIM T/O. IN TO VISIT THIS AFTERNOON, QUESTIONS ANSWERED. NO OTHER CHANGES OR CONCERNS.
--- NOTE | 2021-01-28 19:58 | NUR ---
1936 PT SITTING UP IN BED, EATING DINNER, DENIES ANY DISCOMFORT AT THIS TIME BUT DESATS EASILY. ON HIFLOW O2 15L WHILE EATING, O2 IS 83%, THIS IS NORMAL FOR HIM WITHOUT THE BIPAP, WILL PUT BIPAP BACK ON WHEN HE IS FINISHED EATING. SCD'S ON. CALL LIGHT IS IN REACH. PT DENIES NEED FOR ANYTHING ELSE AT THIS TIME.
--- NOTE | 2021-01-29 00:45 | NUR ---
01/28/21 2200 PT LYING IN BED, EYES CLOSED, APPEARS TO BE RESTING. BREATHING IS EVEN, UNLABORED. BIPAP IN PLACE. NO APPARENT SIGNS OF DISTRESS. CALL LIGHT IS IN REACH.
--- NOTE | 2021-01-29 00:47 | NUR ---
0000 PT LYING IN BED, EYES CLOSED, APPEARS TO BE RESTING. BREATHING IS EVEN, UNLABORED. V60 BIP[address]. NO APPARENT SIGNS OF DISTRESS. CALL LIGHT IS IN REACH.
--- NOTE | 2021-01-29 04:22 | NUR ---
0200 PT LYING IN BED, EYES CLOSED, APPEARS TO BE RESTING. V60 CP[address]. NO APPARENT SIGNS OF DISTRESS. BREATHING IS EVEN, UNLABORED. CALL LIGHT IS IN REACH.
--- NOTE | 2021-01-29 04:23 | NUR ---
PT LYING IN BED, EYES CLOSED, APPEARS TO BE RESTING. BREATHING IS EVEN, UNLABORED. V60 CPAP IS IN PLACE. NO APPARENT SIGNS OF DISTRESS. CALL LIGHT IS IN REACH.
--- NOTE | 2021-01-29 04:24 | NUR ---
PT IS AAO X 4, ON V60 CPAP W/75% O2 IN. PT DESATS EASILY. BS WAS 269. SCD'S.
--- NOTE | 2021-01-29 05:36 | NUR ---
PT LYING IN BED, EYES CLOSED, APPEARS TO BE RESTING. BREATHING IS EVEN, UNLABORED. NO APPARENT SIGNS OF DISTRESS. CALL LIGHT IS IN REACH. V60 CPAP IN PLACE, HOWEVER PT REQUESTING TO BE ON HIFLOW O2 15 L, WILL PLACE THIS ON AND SEE HOW PT DOES. NO OTHER CHANGES THIS SHIFT.
[2021-01-29 06:08] LABS: BASOPHILS ABSOLUTE AUTO 0.01 K/mm3 (0.00-0.23); BASOPHILS PERCENT AUTO 0 % (0-2); EOSINOPHILS PERCENT AUTO 0 % (0-6); Hematocrit 50.8 % (37.0-53.0); Hemoglobin 15.7 g/dL (13.5-17.5); IMMATURE GRAN ABSOLUTE AUTO 0.07 K/mm3 (0.00-0.10); IMMATURE GRAN PERCENT AUTO 1 % (0-1); LYMPHOCYTES ABSOLUTE AUTO 0.37 K/mm3 (0.84-5.20); LYMPHOCYTES PERCENT AUTO 3 % (21-46); MONOCYTES ABSOLUTE AUTO 0.51 K/mm3 (0.16-1.47); MONOCYTES PERCENT AUTO 4 % (4-13); Mean Corpuscular HGB 30.5 pg (26.0-34.0); Mean Corpuscular HGB Conc 30.9 g/dL (31.5-36.5); Mean Corpuscular Volume 99 fL (80-100); NEUTROPHILS ABSOLUTE AUTO 11.77 K/mm3 (1.96-9.15); NEUTROPHILS PERCENT AUTO 93 % (41-73); NRBC ABSOLUTE 0.03 K/mm3 (0.00-0.02); NRBC Auto 0.2 /100 WBC (0.0-0.2); RDW Coefficient Variation 15.1 % (11.7-14.2); Red Blood Cell Count 5.15 M/mm3 (4.30-5.90); White Blood Cell Count 12.73 K/mm3 (4.00-11.30)
[2021-01-29 06:19] LABS: Calcium, Blood 9.1 mg/dL (8.5-10.1); Creatinine, Blood 2.52 mg/dL (0.60-1.20); Potassium, Blood 5.4 mmol/L (3.5-5.5)
[2021-01-29 06:39] LABS: Platelet Count 32 K/mm3 (150-400)
--- NOTE | 2021-01-29 17:15 | NUR ---
STARTED COMFORT CARE- DR. VO HAD LONG DISCUSSION WITH FAMLLY AND DECIDED COMFORT THE BEST ROUTE FOR PT. STARTED ROXONOL 10MG, HELPFUL IN BREATHING EFFORT. AT BEDSIDE AND VERY SUPPORTIVE. PT JOVIAL AND IN GOOD SPIRITS, TAKING ALL IN STRIDE, GOOD COPING SKILLS AND FAMILY SUPPORT SEEM TO BE IN PLACE.
--- NOTE | 2021-01-29 17:17 | NUR ---
SUMMARY- PT A/O X4, IN GOOD SPIRITS. STARTED COMFORT CARE TODAY. PT USING URINAL. HAS BEEM BEDRIDDEN. HIGH FLOW OXYGEN AT 15L. SATS 84%. DYSPNEA WITH ANY EXERTION. TOLERATES FOOD AND FLUIDS BUT EATS FAST SO HE CAN BREATH. DESATS 84% WITH EXERTION OF EATING. ROXONOL PM HELPFUL FOR RESP EFFORT. PLAN FOR HOME HOSPICE WEDNESDAY.
--- NOTE | 2021-01-29 19:55 | NUR ---
will follow pt for symptom managment and hospice plan.
--- NOTE | 2021-01-29 21:03 | NUR ---
PT LYING IN BED, REPORTS DYSPNEA, GAVE ROXANOL, WILL EVAL FOR EFFECT. ON V60 CPAP W/75% O2 IN. NO OTHER APPARENT SIGNS OF DISTRESS. DENIES NEED FOR ANYTHING ELSE AT THIS TIME. CALL LIGHT IS IN REACH.
--- NOTE | 2021-01-29 22:54 | NUR ---
PT LYING IN BED, EYES CLOSED, APPEARS TO BE REASTING, V60 CPAP W/75% O2 IN IS IN PLACE, BREATHING IS EVEN, UNLABORED. NO APPARENT SIGNS OF DISTRESS. CALL LIGHT IS IN REACH.
--- NOTE | 2021-01-30 02:54 | NUR ---
PT LYING IN BED, EYES CLOSED, APPEARS TO BE RESTING. BREATHING IS EVEN, UNLABORED. V60 [address] WITH 75%O2 IN. NO OTHER APPARENT SIGNS OF DISTRESS. CALL LIGHT IS IN REACH.
--- NOTE | 2021-01-30 02:55 | NUR ---
PT LYING IN BED, EYES CLOSED, APPEARS TO BE RESTING. BREATHING IS EVEN, UNLABORED. NO APPARENT SIGNS OF DISTRESS. V60 [address] WITH 75% O2 IN. CALL LIGHT IS IN REACH.
--- NOTE | 2021-01-30 02:55 | NUR ---
PT IS AAO X 4, ON V60 CPAP WITH 75% O2 IN, DESATS EASILY. BS WAS 337.
--- NOTE | 2021-01-30 05:51 | NUR ---
0400 PT LYING IN BED, EYES CLOSED, APPEARS TO BE RESTING. BREATHING IS EVEN, UNLABORED. NO APPARENT SIGNS OF DISTRESS. V60 CPAP WITH 75% O2 IN IS IN PLACE. CALL LIGHT IS IN REACH.
--- NOTE | 2021-01-30 05:51 | NUR ---
SEE 3024 NOTE WITH SHIFT SUMMARY
--- NOTE | 2021-01-30 05:52 | NUR ---
PT LYING IN BED, EYES CLOSED, APPEARS TO BE RESTING. BREATHING IS EVEN, UNLABORED. V60 CPAP WITH 75% O2 IS IN PLACE. NO APPARENT SIGNS OF DISTRESS. CALL LIGHT IS IN REACH. NO OTHER CHANGES THIS SHIFT.
--- NOTE | 2021-01-30 10:06 | NUR ---
THIS RN RECENTLY RECIEVED REPORT AND IS ASSUMING CARE OF THIS PT AT THIS TIME.
--- NOTE | 2021-01-30 10:10 | NUR ---
PT BEING ASSISTED BY OTHER RN. PT ON CONT BIOX. PT BEING PLACED BACK ON BIPAP AFTER HAVING BREAKFEAST.
--- NOTE | 2021-01-30 11:19 | NUR ---
PT BEEN ASSISTED WITH ADLS PRN. BIPAP IN PLACE. CONT BIOX IN PLACE.
--- NOTE | 2021-01-30 16:37 | NUR ---
PT FAMILY PRESENT. PT ASSISTED WITH URINAL AND GIVEN HEARING AIDES PER HIS REQUEST. PT REQ TO BE OFF BIPAP WHILE FAMILY PRESENT. PT WAS MED FOR FRAZIER EARLIER WITH TYLENOL. PT WAS ALSO PLACED BACK ON BIPAP AFTER TAKING TYLENOL HE WAS OFF BIPAP FOR A COUPLE HOURS BEFORE THIS PER HIS REQUEST. CONT BIOX IN PLACE.
--- NOTE | 2021-01-30 16:43 | NUR ---
Update 03/01/21: Per chart review with Dr. Sibley, pt. appropriate for discharge tomorrow on hospice. Discussed hospice care with patient's . She stated that they have had [facility] home [facility] previously which they were happy with. [facility] availability. Pt. and are very ready for pt. to go home. Both [facility] and [facility] are booked out until Wednesday. Other option for pt. is [facility]. Contacted [place] and they have availability tomorrow. Discussed with patient's and she would like to accept [facility] services. Discharge orders and packet sent to [facility]. Per Najma with [facility], they will get pt. the equipment tomorrow early am and sent hospice nurse out at 11am as well. Notified patient's . Najma has contacted patient's as well. I will arrange for transportation in the am pending return call from [facility] with confirmation.
--- NOTE | 2021-01-30 18:17 | NUR ---
SHIFT SUMMARY PT BEEN EATING AND DRINKING WITH HIGH FLOW O2 IN PLACE. FAMILY PRESENT THIS AFTERNOON. PT BEEN ASSISTED WITH ADL'S PRN. PT REPORTED HE DID NOT WANT TO BE REPOSITIONED AT TIMES HE WAS COMFORTABLE. PT DID REQUEST TO HAVE BED BATH, WHICH AUDIE AND THIS RN GAVE PT BED BATH TODAY. PT BEEN ON AND OFF BIPAP, WHEN NOT ON BIPAP, PT BEEN RECIEVING 15LO2. PT BEEN PLEASANT AND COOPERATIVE. PT WAS MED FOR FRAZIER EARLIER TODAY WHICH HE STATED WAS GONE AFTER HAVING SOME TYLENOL AND BEING BACK ON THE BIPAP.
--- NOTE | 2021-01-30 19:44 | NUR ---
review of symptoms with patient and air hunger versus pain. having stress over hospice placement of bed and plan of care. Gently reviewed hospice visits and what daily life might look out. we reviewed putting bed in living room and have card parties and care COVID socialization to protect them. promoted that if she wasn not happy with care hospice team wants to know. Will follow up on symptoms and support for . pt will need shara ramon.
--- NOTE | 2021-01-31 04:25 | NUR ---
Charlie is currrently sleeping with bipap on. He was medicated with morphine for air hunger at the begining of the shift. No further complaints of pain or sob. Pt had visit from daughter Josiah before bipap applied.
--- NOTE | 2021-01-31 06:07 | NUR ---
No complaints of pain or discomfort. Seemed to have slept t/o the night.
--- NOTE | 2021-01-31 08:20 | NUR ---
PT DENIES ANY NEEDS AT THIS TIME. BOOSTED UP IN BED. DENIES PAIN. EATING BREAKFAST.
[2021-01-31] MEDS ORDERED: AZIT250 PO (10:03)
[2021-01-31] MEDS ORDERED: ONDA4 PO (10:05)
[2021-01-31] MEDS ORDERED: MORP20L SL (10:05)
[2021-01-31] MEDS ORDERED: PANT40 PO (10:06)
[2021-01-31] MEDS ORDERED: SPIRIVA RESPIMAT4 G3 INH (10:07)
--- NOTE | 2021-01-31 10:24 | NUR ---
PT SOB W/REPOSITIONING/LYING DOWN TO BOOST BOOSTED UP AND RAISED HOB. PT REPORTS DOING BETTER.
--- NOTE | 2021-01-31 11:19 | NUR ---
DISCHARGED PT LEFT UNIT VIA GURNEY ESCORTED BY AMBULANCE CREW.
--- NOTE | 2021-01-31 13:07 | NUR ---
Update 03/03/21: arranged for [facility] to cover the cost of transportation. Transportation scheduled with [facility] for a gurney transport to home at 10:30 am. Per [facility] they could potentially have a slight delay in transport. Updated [facility] about possible delay. Patient's Teresita has the house set up and ready for pt. All equipment was delivered this am. Hospice nurse will be at patients house at 11am. Per [facility] staff Najma, hospice medication needs will be determined by hospice nurse at visit to home. Their RN [facility] will order the medications and communicate with the PCP. No further needs at this time. [facility] team will schedule hospital F/U if indicated.
--- NOTE | 2021-01-31 18:35 | NUR ---
theraputic visit with pt before discharge
== END 2021-01-31 11:16 | disposition hospice, home (50) | DRG 280 ==
LOC: ER 13:40 → MEDS 16:12 → ERHOLD 16:12 → MEDS 20:06 → ENPENDDIS 01-31 10:11 → MEDS 01-31 11:16
PROVIDERS: Emergency Medicine; Family Medicine; ADMIT Internal Medicine
PROC: 5A0935A Assistance with Respiratory Ventilation, Less than 24 Consecutive Hours, High Flow/Velocity Cannula (ICD-10-PCS; principal; 2021-01-27)
PROC: 5A09457 Assistance with Respiratory Ventilation, 24-96 Consecutive Hours, Continuous Positive Airway Pressure (ICD-10-PCS; 2021-01-28)
DX: I13.0 Hypertensive heart and chronic kidney disease with heart failure and stage 1 through stage 4 chronic kidney disease, or unspecified chronic kidney disease (principal); I21.A1 Myocardial infarction type 2; I50.33 Acute on chronic diastolic (congestive) heart failure; J96.21 Acute and chronic respiratory failure with hypoxia; N17.9 Acute kidney failure, unspecified; E24.2 Drug-induced Cushing's syndrome; Z66 Do not resuscitate; M06.9 Rheumatoid arthritis, unspecified; E66.01 Morbid (severe) obesity due to excess calories; G47.33 Obstructive sleep apnea (adult) (pediatric); I27.20 Pulmonary hypertension, unspecified; M19.90 Unspecified osteoarthritis, unspecified site; F32.9 Major depressive disorder, single episode, unspecified; G89.29 Other chronic pain; I87.2 Venous insufficiency (chronic) (peripheral); M54.9 Dorsalgia, unspecified; Z20.822 Contact with and (suspected) exposure to COVID-19; R74.01 Elevation of levels of liver transaminase levels; Z51.5 Encounter for palliative care; D69.6 Thrombocytopenia, unspecified; T38.0X5A Adverse effect of glucocorticoids and synthetic analogues, initial encounter; K64.4 Residual hemorrhoidal skin tags; E78.5 Hyperlipidemia, unspecified; J43.9 Emphysema, unspecified; N18.30 Chronic kidney disease, stage 3 unspecified; I48.91 Unspecified atrial fibrillation; Z99.81 Dependence on supplemental oxygen; Z95.0 Presence of cardiac pacemaker; Z87.442 Personal history of urinary calculi; Z98.890 Other specified postprocedural states; Z87.891 Personal history of nicotine dependence; Z88.0 Allergy status to penicillin; Z79.52 Long term (current) use of systemic steroids; Z79.899 Other long term (current) drug therapy; Z79.01 Long term (current) use of anticoagulants; Z79.51 Long term (current) use of inhaled steroids; Z79.4 Long term (current) use of insulin; Z68.39 Body mass index [BMI] 39.0-39.9, adult; Z88.1 Allergy status to other antibiotic agents
CPT/HCPCS: 36415; 36416; 51798; 71045; 80048; 80053; 82947; 83735; 83880; 84484; 85025; 85610; 93005; 93010; 94640; 94660; 94664; 94760; 94762; 96374; 99285-25; A9270; C8929; J1940; J2930; J7120; J7512; Q9957; U0004